=== PATIENT | female | born 1960 | race Caucasian/White ===

== ENCOUNTER 2018-12-11 12:19 | Emergency (ER) | payer BC ==
[2018-12-11 12:45] LABS: #Basophils 0.1 thou/uL (0.0-0.2); #Eosinphils 0.1 thou/uL (0.0-0.7); #Monocytes 0.3 thou/uL (0.11-0.59); #Neutrophils 7.5 thou/uL (1.40-6.50); %Basophils 0.7 % (0.0-1.0); %Eosinophils 0.8 % (0.0-10.0); %Lymphocytes 19.8 % (21.0-51.0); %Monocytes 3.4 % (0.0-10.0); %Neutrophils 75.3 % (42.0-75.0); Hemoglobin 15.9 g/dL (12.0-16.0); Mean Corpuscular HGB CONC 33.3 g/dL (32.0-36.0); Mean Corpuscular Volume 93.3 fL (78.0-98.0); Mean Platelet Volume 8.9 fL (7.4-10.4); Platelet Count 165 thou/uL (130-400); RBC Distribution Width 12.1 % (11.5-14.5); Red Blood Cell (RBC) Count 5.11 mill/uL (4.20-5.40); White Blood Cell (WBC) Count 9.9 thou/uL (4.8-10.8)
[2018-12-11 13:06] LABS: ALT (SGPT) 25 U/L (8-55); AST (SGOT) 21 U/L (5-34); Albumin 4.2 g/dL (3.5-5.0); Alkaline Phosphatase 78 U/L (40-150); Anion Gap 14 mmol/L (10-20); BUN (Urea Nitrogen) 12 mg/dL (9.8-20.1); Bilirubin, Total 0.3 mg/dL (0.2-1.2); Calc. Creatinine Clearance 0 mL/min (70-130); Calcium 9.9 mg/dL (7.8-10.44); Carbon Dioxide 23 mmol/L (22-29); Chloride 105 mmol/L (98-107); Estimated GFR-MDRD 64; Globulin 2.8 g/dL (2.4-3.5); Glucose 85 mg/dL (70-105); Potassium 4.2 mmol/L (3.5-5.1); Sodium 138 mmol/L (136-145)
--- NOTE | 2018-12-11 13:29 | ULT ---
"PRELIMINARY REPORT" Exam: RIGHT BREAST ULTRASOUND: HISTORY: Right breast nipple and areolar feel hard and leathery. Evaluate for infection/abscess. COMPARISON: None. TECHNIQUE: Targeted sonographic imaging in the region of concern was performed. Static images are re viewed. FINDINGS: Static images demonstrate soft tissue echotexture. No evidence of abscess. IMPRESSION: No sonographic evidence of a right breast abscess. Given the patient's history, the poss ibility of inflammatory breast cancer must be considered. Diagnostic mammogram is recommended. Results study discussed with Mili Borrero on 12/11/2018 at 1:29 PM. Code CR
== END 2018-12-11 14:20 | disposition home or self-care (01) ==
LOC: ERS 12:19
DX: N63.10 Unspecified lump in the right breast, unspecified quadrant (principal); F17.200 Nicotine dependence, unspecified, uncomplicated
CPT/HCPCS: 36415; 80053; 83605; 85025; 88305; 88341; 88342

== ENCOUNTER 2018-12-13 13:10 | Outpatient (CLI) | payer BC ==
--- NOTE | 2018-12-13 15:29 | MMO ---
Bilateral MAMMO Bilat Diag [facility]. CLINICAL HISTORY: Patient is 58 years old and is seen for diagnostic exam,skin thickening or retraction on clinical examination in the sub-areolar region of the right breast, lump or thickening in the sub-areolar region of the right breast and nipple abnormality in the right breast. The patient has no family history of breast cancer. The patient has no personal history of cancer. VIEWS: The views performed were: bilateral craniocaudal with tomosynthesis; bilateral mediolateral oblique with tomosynthesis; and bilateral mediolateral with tomosynthesis. FILMS COMPARED: The present examination has been compared to a prior imaging study performed on 12/11/2018. MAMMOGRAM FINDINGS: There are scattered fibroglandular densities. There is an area of architectural distortion seen in the upper-outer region of the right breast. Extensive area of architectural distortion , extends from to upper outer posterior breast. Also enlarged axillary nodes. In the left breast, there are no suspicious masses, calcifications or areas of architectural distortion. IMPRESSION: AREA OF ARCHITECTURAL DISTORTION IN THE RIGHT BREAST IS A KNOWN MALIGNANCY. THE RESULTS OF THIS EXAM WERE SENT TO THE PATIENT. ACR BI-RADS Category 6 - Known Biopsy Proven Malignancy MAMMOGRAPHY NOTE: 1. A negative mammogram report should not delay a biopsy if a dominant of clinically suspicious mass is present. 2. Approximately 10% to 15% of breast cancers are not detected by mammography. 3. Adenosis and dense breasts may obscure an underlying neoplasm. Reported by: BRYCE HA MD Electonically Signed: [id number]
== END 2018-12-13 13:11 | disposition home or self-care (01) ==
LOC: BICMAMMO 13:10
PROVIDERS: ATTEND Specialist
DX: N61.0 Mastitis without abscess (principal); Q83.9 Congenital malformation of breast, unspecified
CPT/HCPCS: 77066; G0279

== ENCOUNTER 2018-12-21 11:54 | Outpatient (CLI) | payer BC ==
[2018-12-21] MEDS ORDERED: Iopamidol 370 76% 100 ML VIAL ONE (13:30)
--- NOTE | 2018-12-21 14:46 | CT ---
CT CHEST WITH CONTRAST CT ABDOMEN WITH CONTRAST CT PELVIS WITH CONTRAST: Date: 12/21/18 HISTORY: Inflammatory breast cancer. Breast pain and swelling. COMPARISON: None. FINDINGS: Lungs are clear. No suspicious pulmonary nodule. No pneumothorax. No effusion. There is a mass in the right upper outer breast with skin thickening and nipple retraction. Abnormal right axillary lymph nodes, likely metastatic in nature. Right mediastinal visceral pleural mass measuring 2.1 x 1.8 x 1.8 cm. No supraclavicular adenopathy. No left axillary adenopathy. No internal mammary adenopathy. There are multiple hepatic sub-6 mm hypodensities, too small to characterize on this examination. In hepatic segment 5 there is also another hypodensity measuring 8 mm, also too small to fully character ize. Gallbladder is unremarkable. Common bile duct measures up to 7 mm, upper limits of normal. Low grade intrahepatic biliary dilatation. Pancreas unremarkable, as well as the spleen. Adrenal glands unremarkable. Kidneys unremarkable. Aortoiliac contour is nonaneurysmal. No dilated loops of large or small bowel. Mild diverticular dise ase sigmoid colon without active current inflammation. There is an area of sclerosis within the L5 vertebra, likely bone island. No definite evidence of oss eous metastatic disease. IMPRESSION: 1. Known right inflammatory breast cancer with marked skin thickening and right upper outer breast m ass, as well as abnormally enlarged right axillary lymph nodes likely metastatic in nature. No eviden ce for supraclavicular or internal mammary adenopathy. 2. Soft tissue mass along the right mediastinal visceral pleura measuring 2.1 x 1.8 x 1.8 cm, may re flect a metastatic implant. 3. Multiple hepatic hypodensities that are all subcentimeter and too small to fully characterize on this exam. 4. No evidence for osseous metastatic disease. 5. PET CT may be beneficial to evaluate the right mediastinal mass. 6. Low grade intrahepatic and extrahepatic biliary dilatation can be seen with sphincter of Oddi dys function. LFT correlation advised. 7. Pedunculated, partially calcified anterior uterine body fibroid. 8. Mild diverticular disease of sigmoid colon without active current inflammation. POS: HOME
== END 2018-12-21 11:55 | disposition home or self-care (01) ==
LOC: CT 11:54
PROVIDERS: ATTEND Internal Medicine Hematology & Oncology
DX: Z51.11 Encounter for antineoplastic chemotherapy (principal); C50.411 Malignant neoplasm of upper-outer quadrant of right female breast; D25.9 Leiomyoma of uterus, unspecified; I08.1 Rheumatic disorders of both mitral and tricuspid valves
CPT/HCPCS: 71260; 74177; 93306

== ENCOUNTER 2018-12-26 10:50 | Outpatient (CLI) | payer BC ==
--- NOTE | 2018-12-26 13:08 | PET ---
EXAM: PET/CT HISTORY: Lung mass TECHNIQUE: PET scanning with CT attenuation correction was performed from the base of the brain to the proximal thighs following the intravenous administration of 11.4 millicuries [id number]. COMPARISON: CT of the chest, abdomen and pelvis dated December 21, 2018 FINDINGS: Biodistribution:The biodistribution for the exam appears acceptable. Head and neck: There is appropriate background activity within the brain. No hypermetabolic lymphaden opathy or masses identified. Thorax: No hypermetabolic pulmonary lesion or pleural effusion is evident. The hyperdense mediastinal mass, adjacent to the ascending aorta demonstrates peak SUV uptake activity of 1.69 and a mean activity 1.42. No hypermetabolic mediastinal or hilar lymphadenopathy is evident. There are hypermeta bolic right axillary lymph nodes. The largest measures 1.2 cm and has a peak SUV activity of 3.32 and a mean activity of 2.41. An additional 1.3 cm right axillary lymph node has a peak activity of 1. 8 and a mean activity of 1.4. There is a 1 cm right axillary lymph node that demonstrates a peak activity 1.9 and a mean activity 1.79. There is prominent hypermetabolic activity seen involving the central aspect of the right breast consistent with patient's known malignancy. The peak activity associated with this region of the breast as a SUV value of 6.89 and a mean activity of 5.88. The act ivity just adjacent to the right nipple complex has a peak activity of 8.90 mean activity of 7 2 Abdomen and pelvis: There is expected background activity within the GI and systems. No hypermetab olic mass, lymphadenopathy or ascites is present. There are tiny hypodensities within the liver that demonstrates no associated hypermetabolic activity ; however, majority subcentimeter in size. The largest within the right hepatic lobe measures 9 mm. Osseous structures and skin: No hypermetabolic skin or osseous lesion is identified. IMPRESSION: Abnormal PET/CT 1. There is hypermetabolic uptake involving the right breast diffusely within the central right breas t extending to the right nipple areolar complex consistent with patient's known history of inflammatory breast cancer of the right breast. There is a hypermetabolic right axillary lymph node t hat is suspicious for malignant lymphadenopathy. There are 2 additional mildly prominent lymph nodes within the right axillary region that demonstrate mild increased uptake but no lokesh hypermetab olic uptake; however, these 2 lymph nodes remain suspicious for metastatic disease. 2. Small hypodensities within the liver demonstrate no associated hypermetabolic activity; however, m ajority of these are subcentimeter in size and below PET resolution threshold. The largest lesion within segment 6 of the right hepatic lobe measures [address] follow-up is recommended. 3. The hypermetabolic mass seen within the right aspect of the mediastinum, adjacent to the ascending aorta demonstrates no hypermetabolic uptake. There is some mild increased uptake associated with this lesion. Differential considerations include a small thymoma, ectopic thyroid tissue, slightly at ypical and hyperdense pericardial cyst. A CT evaluation of the thorax with and without contrast may be helpful for improved characterization.
== END 2018-12-26 10:51 | disposition home or self-care (01) ==
LOC: PET 10:50
PROVIDERS: ATTEND Internal Medicine Hematology & Oncology
DX: C50.919 Malignant neoplasm of unspecified site of unspecified female breast (principal); K76.89 Other specified diseases of liver; J98.59 Other diseases of mediastinum, not elsewhere classified
CPT/HCPCS: 78815; A9552

== ENCOUNTER 2018-12-29 08:44 | Day surgery (SDC) | payer BC ==
[2018-12-28 10:17] VITALS: BMI 30.5
[2018-12-29] MEDS ORDERED: ceFAZolin Sodium (SDC) 2 GM/100 ML BAG ONE (09:39)
[2018-12-29] MEDS ORDERED: Lidocaine 2% PF 5 ML VIAL ONE ×2 (10:24→11:38)
[2018-12-29] MEDS ORDERED: Bupivacaine/Epinephrine 0.25% 30 ML VIAL ONE (10:24)
[2018-12-29] MEDS ORDERED: Fentanyl 100 MCG/2 ML VIAL ONE (11:32)
[2018-12-29] MEDS ORDERED: Bupivacaine HCl 0.5%/Epinephrine 1:200,000/PF 30 ml Vial ONE (11:38)
[2018-12-29] MEDS ORDERED: Midazolam HCl 2 mg/2 ml Vial ONE (11:46)
--- NOTE | 2018-12-29 15:31 | RAD ---
RADIOGRAPH CHEST 1 VIEW: HISTORY: 58-year-old female status post MediPort placement. FINDINGS: There are no air space densities, pulmonary edema, pneumothorax, or cardiomegaly. The lateral costoph renic angles are sharp. There is a left subclavian implantable vascular access port with distal tip o verlying the right atrium. IMPRESSION: 1. No acute cardiopulmonary findings. 2. Left-sided implantable vascular access port placement without pneumothorax. jn [] POS: [facility]
[2018-12-29] MEDS ORDERED: Lidocaine 1% PF 5 ML VIAL ONE (15:44)
[2018-12-29] MEDS ORDERED: PROPOFOL 200 MG/20 ML VIAL ONE (15:44)
[2018-12-29] MEDS ORDERED: Ondansetron PF 4 MG/2 ML Vial ONE (15:44)
--- NOTE | 2018-12-29 19:32 | OP ---
DATE OF PROCEDURE: 12/29/2018 PREOPERATIVE DIAGNOSIS: Right breast cancer inflammatory. POSTOPERATIVE DIAGNOSIS: Right breast cancer inflammatory. PROCEDURE PERFORMED: Left subclavian vein MediPort, low-profile, power injection, fluoroscopy used. ANESTHESIA: Intravenous sedation, local, 0.5% Marcaine with epinephrine 30 mL mixed with 2% Xylocaine 10 mL. DESCRIPTION OF PROCEDURE: The patient was taken to the operating room, where under intravenous sedation, neck and chest were prepared with ChloraPrep and draped in routine fashion. Local anesthetic mixture was infiltrated into the skin and subcutaneous tissue about the operative site. Trocar catheter was cannulated in the subclavian vein in infraclavicular approach. The skin incision was made sharply, carried down the skin and subcutaneous tissue, subcutaneous pocket was fashioned with blunt and sharp dissection, cautery for hemostasis. Dilator and Peel-Away sheath were placed over the J-wire into the superior vena cava. Dilator and J-wire were removed. Catheter was placed with Peel-Away sheath. Peel-Away sheath was removed. Fluoroscopically, the tip of the catheter was placed in optimal position in the superior vena cava, and catheter tailored to length and connected to the MediPort, which was placed in the subcutaneous pocket and secured with 2 interrupted sutures of 3-0 Prolene. Subcutaneous tissue was approximated with 3-0 Monocryl, skin with subdermal 4-0 Monocryl. MediPort was accessed with a Barcenas needle, aspirated blood, flushed with heparinized saline solution. Dermabond was applied. Final fluoroscopic images revealed good catheter placement. Job ID: [id number]
--- NOTE | 2019-01-01 08:58 | EKG ---
Test Reason : PREOP Blood Pressure : / mmHG Vent. Rate : 079 BPM Atrial Rate : 079 BPM P-R Int : 138 ms QRS Dur : 080 ms QT Int : 360 ms P-R-T Axes : 065 009 052 degrees QTc Int : 412 ms Normal sinus rhythm Normal ECG No previous ECGs available Confirmed by DR. Jose KOEHLER ([id number]) on 01/01/2019 8:58:03 AM Referred By: GAL Confirmed By:DR. Jose KOEHLER
== END 2018-12-29 14:30 | disposition home or self-care (01) ==
LOC: SDC 08:44
PROVIDERS: ATTEND Specialist
PROC: 05H633Z Insertion of Infusion Device into Left Subclavian Vein, Percutaneous Approach (ICD-10-PCS; principal; 2018-12-29)
DX: C50.911 Malignant neoplasm of unspecified site of right female breast (principal); F17.200 Nicotine dependence, unspecified, uncomplicated; Z79.899 Other long term (current) drug therapy
CPT/HCPCS: 71045; 93005; 93010; C1788; J0670; J0690; J1642; J2001; J2250; J2405; J2704; J3010

== ENCOUNTER 2019-06-01 09:54 | Outpatient (CLI) | payer BC ==
--- NOTE | 2019-06-01 10:58 | CT ---
EXAM: CT of the chest with contrast CT of the abdomen and pelvis with contrast HISTORY: Breast cancer COMPARISON: 12/21/2018; PET/CT 12/26/2018 TECHNIQUE: 1. Multiple contiguous axial images were obtained in a CT the chest with contrast. Coronal and sagitt al reformats were performed. 2. Multiple contiguous axial images were obtained and a CT of the abdomen and pelvis with contrast. C oronal and sagittal reformats were performed. FINDINGS: CT CHEST: HEART: Normal in size without focal cardiac abnormality MEDIASTINUM: There is a stable oval-shaped mass just anterior to the aorta in the anterior mediastinu m measuring 2.2 cm in greatest dimension. LUNGS: No focal infiltrates, nodules, or masses. PLEURAL SPACE: No pneumothorax or pleural effusion. CHEST WALL SOFT TISSUES: There is stable right breast skin thickening. The mass in the right breast h as decreased in size. It currently measures 1.6 cm in size. The previously seen enlarged right axillary lymph nodes are now normal in size. There is a left-sided Mediport with its tip in the super ior vena cava. CT ABDOMEN/PELVIS: ABDOMEN: LIVER: There are stable subcentimeter hypodensities scattered throughout the liver which are too smal l to definitely characterize. There is stable left lobe mild central intrahepatic biliary dilatation. BILE DUCTS: Normal caliber. GALLBLADDER: No calcified gallstones. Normal caliber wall. PANCREAS: within normal limits. SPLEEN: within normal limits. ADRENALS: within normal limits. KIDNEYS: within normal limits. PELVIS: REPRODUCTIVE ORGANS: No pelvic masses. URETERS: within normal limits. BLADDER: within normal limits. PERITONEUM: No ascites or free air, no fluid collection. BOWEL: Normal caliber. Normal appendix. MESENTERY AND RETROPERITONEUM: No enlarged mesenteric or retroperitoneal lymph nodes. VESSELS: Atherosclerotic calcifications. ABDOMINAL WALL: within normal limits. OSSEOUS STRUCTURES: No acute abnormality. No suspicious osseous lesions identified. IMPRESSION: 1. Decreased size of right breast mass and resolution of right axillary adenopathy 2. Stable nonspecific well-circumscribed mass in the anterior mediastinum. This was not hypermetaboli c on recent PET/CT. 3. Stable hepatic hypodensities
== END 2019-06-01 09:55 | disposition home or self-care (01) ==
LOC: BICCT 09:54
PROVIDERS: ATTEND Internal Medicine Hematology & Oncology
DX: C50.411 Malignant neoplasm of upper-outer quadrant of right female breast (principal); D70.1 Agranulocytosis secondary to cancer chemotherapy; N63.10 Unspecified lump in the right breast, unspecified quadrant; J98.59 Other diseases of mediastinum, not elsewhere classified; R59.0 Localized enlarged lymph nodes; K76.89 Other specified diseases of liver
CPT/HCPCS: 71260; 74177

== ENCOUNTER 2019-06-07 11:14 | Outpatient (CLI) | payer BC ==
[2019-06-07 12:17] LABS: #Eosinphils 0.1 thou/uL (0.0-0.7); #Monocytes 0.5 thou/uL (0.11-0.59); #Neutrophils 7.1 thou/uL (1.40-6.50); %Basophils 0.1 % (0.0-1.0); %Eosinophils 1.2 % (0.0-10.0); %Lymphocytes 10.9 % (21.0-51.0); %Monocytes 5.6 % (0.0-10.0); %Neutrophils 82.2 % (42.0-75.0); Hemoglobin 13.5 g/dL (12.0-16.0); Mean Corpuscular HGB CONC 33.1 g/dL (32.0-36.0); Mean Corpuscular Hemoglobin 32.8 pg (27.0-31.0); Mean Corpuscular Volume 99.2 fL (78.0-98.0); Platelet Count 196 thou/uL (130-400); RBC Distribution Width 13.3 % (11.5-14.5); White Blood Cell (WBC) Count 8.7 thou/uL (4.8-10.8)
[2019-06-07 12:39] LABS: ALT (SGPT) 20 U/L (8-55); AST (SGOT) 21 U/L (5-34); Albumin 4.3 g/dL (3.5-5.0); Alkaline Phosphatase 78 U/L (40-110); Anion Gap 14 mmol/L (10-20); BUN (Urea Nitrogen) 13 mg/dL (9.8-20.1); Bilirubin, Total 0.2 mg/dL (0.2-1.2); Calc. Creatinine Clearance 0 mL/min (70-130); Calcium 9.7 mg/dL (7.8-10.44); Carbon Dioxide 26 mmol/L (22-29); Chloride 104 mmol/L (98-107); Estimated GFR-MDRD 66; Globulin 2.1 g/dL (2.4-3.5); Glucose 104 mg/dL (70-105); Potassium 4.6 mmol/L (3.5-5.1); Protein, Total 6.4 g/dL (6.0-8.3); Sodium 139 mmol/L (136-145)
--- NOTE | 2019-06-08 15:02 | HP ---
PRIMARY CARE PHYSICIAN: Prasanth Cantu DO, MS HISTORY OF PRESENT ILLNESS: Ariana Camilo is a 58-year-old female who has advanced breast cancer, right, undergo estrogen-receptor positive, undergoing neoadjuvant therapy with Dr. Hicks. She has been noted on PET scan to have a hypermetabolic axillary nodes, but clinically, these have resolved. The mediastinal mass was not metabolic on PET and may be benign and has been stable for [address] Choco Wood regarding biopsy would involve mini thoracotomy and thought probably not to be worthwhile. She is BRCA negative. She has tolerated her Taxol and now, I have been asked to see her regarding definitive mastectomy and node sectioning. She has a grade 2 invasive lobular carcinoma, invasion, ER 67%, GA 31%, HER-2 negative, Ki-67 69% inflammatory right breast cancer with skin and nipple areolar changes, but improved with neoadjuvant therapy. Plan is for sentinel lymphoscintigraphy, sentinel node biopsy, right mastectomy, simple versus modified radical pinning, node sampling. She understands risks and benefits and consents. On 12/11/2018, she had a punch biopsy, demonstrated inflammatory breast cancer, invasive lobular, grade 2. On 12/21/2018, she had a CT scan; inflammatory breast cancer, skin thickening, right axillary nodes, likely metastatic, soft tissue mass, right mediastinal, 2.1 x 1.8 x 1.8 cm, unchanged at this point. 12/26/2018, PET scan; 01/04/2019, neoadjuvant DDAC, finished 02/16/2019; 03/02/2019, neoadjuvant Taxol, finished 05/17/2019. PAST SURGICAL HISTORY: and right breast biopsy. PAST MEDICAL HISTORY: Right breast cancer. MEDICATIONS: None currently. SOCIAL HISTORY: Tobacco occasionally. She is and has children. ALLERGIES: NONE. REVIEW OF SYSTEMS: Ten-point, noncontributory. PHYSICAL EXAMINATION: VITAL SIGNS: 163 pounds, 62 inches, 29 BMI, blood pressure 153/84, heart rate 50, and temperature 99.5 degrees. HEAD, EARS, EYES, NOSE, AND THROAT: Unremarkable. LUNGS: Clear to auscultation. CARDIAC: Regular rate and rhythm without murmur or gallop. ABDOMEN: Soft and nontender. EXTREMITIES: Unremarkable. LYMPH: No lymphadenopathy bilaterally. Left breast normal. Right breast reveals thickened skin, thickening nipple areolar area extending out laterally slightly superiorly. LABORATORY DATA: Note; on 05/17/2019, laboratories; white count 5, hemoglobin 12. ASSESSMENT AND PLAN: Inflammatory right breast cancer. We will plan a right simple versus modified radical mastectomy, pending lymphoscintigraphy and sentinel node biopsy. She understands risks and benefits and consents. Job ID: [id number]
== END 2019-06-07 11:15 | disposition home or self-care (01) ==
LOC: LABBT 11:14
PROVIDERS: ATTEND Specialist
DX: Z01.812 Encounter for preprocedural laboratory examination (principal); C50.911 Malignant neoplasm of unspecified site of right female breast
CPT/HCPCS: 80053; 85025

== ENCOUNTER 2019-06-11 07:31 | Day surgery (SDC) | payer BC ==
[2019-06-07 11:41] VITALS: BMI 29.9
[2019-06-11] MEDS ORDERED: Ondansetron PF 4 MG/2 ML Vial ONE (10:40)
[2019-06-11] MEDS ORDERED: Dexamethasone 20 MG/5 ML VIAL ONE (10:40)
[2019-06-11] MEDS ORDERED: ePHEDrine/0.9% NaCl/PF SYRINGE 50 mg/10 ml ONE (10:40)
[2019-06-11] MEDS ORDERED: PHENYLEPHRINE-NS 100 MCG/ML 10 ML SYRINGE ONE (10:40)
--- NOTE | 2019-06-11 12:01 | NM ---
NUCLEAR MEDICINE LYMPHOSCINTIGRAPHY: HISTORY: Right breast inflammatory breast cancer. Evaluate for lymph node metastases. COMPARISON: None. TECHNIQUE: Patient was administered 0.422 mCi of technetium 99m sulfur colloid subcutaneously at the 12:00, 3:00 , 6:00 and 9:00 position. Imaging was obtained immediately, at 1 hour, at 2 hours and 3 hours. FINDINGS: Despite imaging as far out as the hours, there does not appear to be a sentinel lymph node. IMPRESSION: No scintigraphic evidence of a sentinel lymph node. Examination was terminated after 3 hours. Transcribed Date/Time: 06/11/2019 12:13 PM
[2019-06-11] MEDS ORDERED: Midazolam HCl 2 mg/2 ml Vial ONE (12:17)
[2019-06-11] MEDS ORDERED: Fentanyl 100 MCG/2 ML VIAL ONE ×2 (12:17→15:12)
[2019-06-11] MEDS ORDERED: HYDROmorphone 0.5 MG/0.5 ML SYRINGE ONE (12:18)
[2019-06-11] MEDS ORDERED: Ketorolac Tromethamine 30 MG/ML VIAL ONE (12:28)
[2019-06-11] MEDS ORDERED: Acetaminophen 325 MG TAB ONE (12:34)
[2019-06-11] MEDS ORDERED: Acetaminophen 500 MG TAB ONE (12:35)
[2019-06-11] MEDS ORDERED: Enoxaparin Sodium 40 MG/0.4 ML SYRINGE SC SCH (12:45)
[2019-06-11] MEDS ORDERED: Isosulfan Blue 50 MG/5 ML VIAL ONE (13:13)
[2019-06-11] MEDS ORDERED: Promethazine HCl 25 MG/ML VIAL ONE (15:00)
--- NOTE | 2019-06-11 15:08 | OP ---
DATE OF PROCEDURE: 06/11/2019 PREOPERATIVE DIAGNOSIS: Right breast cancer, inflammatory, status post neoadjuvant therapy. PROCEDURE PERFORMED: 1. Lymphoscintigraphy, failed identification of sentinel node. 2. Lymphazurin blue injection, failed identification of sentinel node. 3. Right modified radical mastectomy. ANESTHESIA: General. DRAINS: Two #19 Gold BRET drain. ANESTHESIA: General anesthesia. DESCRIPTION OF PROCEDURE: The patient was taken to the operating room, where under general anesthesia, Lymphazurin blue was injected in the lateral right breast. Right breast was prepared with ChloraPrep and draped in routine fashion. Incision was made for transversely oriented elliptical incision, encompassing en bloc resection of the nipple-areolar complex and the involved skin centrally. Skin conservation maximized while allowing adequate margins. Plasma blade was used through skin and subcutaneous tissue and flap was dissected free, laterally the latissimus, superiorly the clavicle, inferiorly abdominal wall, and medially to the sternum. Once flaps were dissected free, mastectomy specimen dissected free from the pectoralis fascia bilaterally from the latissimus and serratus. Long thoracic and thoracodorsal nerves identified as axillary contents dissected free using clips for hemostasis. There were palpable nodes in the axilla. They were firm. Good hemostasis noted. A tie placed in the axillary tail for pathology identification. Wound was irrigated with water. Two #19 Gold BRET drains placed, secured with 3-0 nylon sutures. Subcutaneous tissue was approximated with 3-0 Monocryl and skin with william. Sterile dressing applied. Job ID: [id number]
[2019-06-11] MEDS ORDERED: HYDROcodone/Acetaminophen 5/325 mg Tablet ONE (17:35)
== END 2019-06-11 17:55 | disposition home or self-care (01) ==
LOC: SDC 07:31
PROVIDERS: ATTEND Specialist
PROC: 0HTT0ZZ Resection of Right Breast, Open Approach (ICD-10-PCS; principal; 2019-06-11)
DX: D05.01 Lobular carcinoma in situ of right breast (principal); F17.200 Nicotine dependence, unspecified, uncomplicated; Z79.899 Other long term (current) drug therapy
CPT/HCPCS: 78195; 88309; A9541; J0690; J1100; J1170; J1642; J1650; J1885; J2250; J2405; J2550; J3010; Q9968

== ENCOUNTER 2019-07-28 12:05 | Observation (INO) | payer BC ==
--- NOTE | 2019-07-28 12:32 | RAD ---
EXAM: Chest one view: HISTORY: TIA, confusion, slurred speech COMPARISON: 12/29/2018 FINDINGS: Left central line and injection port. Heart size: Within normal limits. Lungs: Clear of acute process. No evidence for confluent pneumonia, pleural effusion, acute edema, or pneumothorax, or other signifi cant acute process. IMPRESSION: No significant acute intrathoracic disease. Stable exam.
[2019-07-28 12:42] LABS: #Eosinphils 0.1 thou/uL (0.0-0.7); #Lymphocytes 0.5 thou/uL (1.20-3.40); #Monocytes 0.3 thou/uL (0.11-0.59); #Neutrophils 5.1 thou/uL (1.40-6.50); %Basophils 0.3 % (0.0-1.0); %Eosinophils 2.1 % (0.0-10.0); %Lymphocytes 8.9 % (21.0-51.0); %Monocytes 5.1 % (0.0-10.0); %Neutrophils 83.7 % (42.0-75.0); Hemoglobin 12.5 g/dL (12.0-16.0); Mean Corpuscular HGB CONC 34.1 g/dL (32.0-36.0); Mean Corpuscular Hemoglobin 31.7 pg (27.0-31.0); Mean Corpuscular Volume 92.8 fL (78.0-98.0); Mean Platelet Volume 8.3 fL (7.4-10.4); Platelet Count 139 thou/uL (130-400); RBC Distribution Width 13.1 % (11.5-14.5); Red Blood Cell (RBC) Count 3.94 mill/uL (4.20-5.40); White Blood Cell (WBC) Count 6.1 thou/uL (4.8-10.8)
[2019-07-28 13:04] LABS: ALT (SGPT) 15 U/L (8-55); AST (SGOT) 17 U/L (5-34); Alkaline Phosphatase 78 U/L (40-110); Anion Gap 8 mmol/L (10-20); BUN (Urea Nitrogen) 18 mg/dL (9.8-20.1); Bilirubin, Total 0.3 mg/dL (0.2-1.2); Calc. Creatinine Clearance 0 mL/min (70-130); Calcium 9.8 mg/dL (7.8-10.44); Carbon Dioxide 29 mmol/L (22-29); Chloride 101 mmol/L (98-107); Estimated GFR-MDRD 51; Globulin 2.5 g/dL (2.4-3.5); Glucose 95 mg/dL (70-105); Magnesium 1.5 mg/dL (1.6-2.6); Potassium 4.4 mmol/L (3.5-5.1); Protein, Total 6.5 g/dL (6.0-8.3); Sodium 134 mmol/L (136-145)
--- NOTE | 2019-07-28 13:21 | CT ---
EXAM: Brain CTWithout contrast: HISTORY: Altered mental status inflammatory breast cancer COMPARISON: None FINDINGS: Several centimeter diameter focal area of encephalomalacia in the left frontal lobe with some adjacen t brain volume loss probably related to old infarct or old insult. No focal mass or midline shift. No intra or extra-axial hemorrhage. Sinuses and mastoids are clear of acute process. IMPRESSION: No mass or bleed or other significant acute intracranial process. Focal area of encephalomalacia in the left frontal lobe with some adjacent brain volume loss probably related to old infarct or other old insult.
[2019-07-28 14:51] LABS: Bacteria/HPF None Seen HPF (None Seen); Bilirubin Negative (Negative); Blood, Urine Trace (Negative); Clarity Clear (Clear); Glucose, Urine (Dipstick) Normal (Negative); Leukocyte Negative Leu/uL (Negative); Nitrite Negative (Negative); Protein, Urine (Dipstick) Negative (Neg-Trace); RBC/HPF 0-3 HPF (0-3); Squamous Epithelial 0-3 HPF (0-3); Urobilinogen Normal mg/dL (Less than 2); WBC/HPF 0-3 HPF (0-3)
[2019-07-28] MEDS ORDERED: Aspirin 325 MG TAB PO SCH (16:30)
[2019-07-28] MEDS: Heparin 5,000 UNITS/ML VIAL SC SCH (20:13)
[2019-07-28] MEDS: Atorvastatin Calcium 40 MG TAB PO SCH (20:14)
--- NOTE | 2019-07-29 00:59 | HP ---
CHIEF COMPLAINT: Acute confusion. HISTORY OF PRESENT ILLNESS: The patient is a 59-year-old female with inflammatory breast cancer. She had finished chemotherapy, status post mastectomy of the right breast and also is now starting on radiation, who presented to the hospital with change in mental status. The patient's who is at the bedside stated that the patient woke up this morning. She was feeling well; however, all of a sudden, the patient did not know the patient's words and speech did not make sense. At this time, the called EMS and brought her into the hospital. The patient's stated that this lasted about an hour and a half or hour and 20 minutes. When she came into the ER, her symptoms resolved. She denies any recent illnesses. She is not on any new medications. Her gave her 2 baby aspirin. PAST MEDICAL HISTORY: She has a history of, as I mentioned, inflammatory breast cancer. She has also had what seems like either an aneurysm, which had happened after she had her done. SURGICAL HISTORY: She has had a and a right mastectomy and also right port placement. FAMILY HISTORY: Mother had ovarian cancer. REVIEW OF SYSTEMS: All negative except for the ones mentioned above in the HPI. SOCIAL HISTORY: She was a smoker, 2 to 3 packs every 2 to 3 days. However, she has not smoked for the past 3 months. No alcohol use. No drug use. She is a full code. Lives with her . PHYSICAL EXAMINATION: VITAL SIGNS: 97.9, 87, 18, 96% on room air, 119/60. GENERAL: She is awake, alert, and oriented x3. Does not appear in any distress. HEENT: Normocephalic, atraumatic. No lymphadenopathy noted. Pupils are equal and reactive to light. CV: S1 and S2 present. No murmurs, rubs, or gallops. LUNGS: Clear to auscultation. No rhonchi or wheezes noted. ABDOMEN: Soft, nontender. Bowel sounds are present x2. BREASTS: She does have a scar in her right breast area. The incision looks healed. She does have some mild erythema, however, nothing concerning. NEUROVASCULAR: No focal deficits noted. Her pupils are equal and reactive to light. She is oriented x3, is able to conversate. Cranial nerves 3 through 11 are intact. She does have some loss of sensation to her finger tips and toes, but she attributes that to her chemotherapy. SKIN: She does have a port on her left chest. No cuts, lesions, or bruises noted. LABORATORY RESULTS: WBCs of 6.1, hemoglobin of 12.5, hematocrit of 36.6, platelets of 139. Chemistry; sodium of 134, potassium of 4.4, BUN of 18, creatinine of 1.10. Her CT head that she had in the ER indicated no mass or bleeds or any other significant intracranial processes. She does have a focal area of encephalomalacia to the left frontal lobe, which is where her aneurysm was. Her EKG was normal sinus rhythm. ASSESSMENT AND PLAN: The patient is a very pleasant 59-year-old female, who presents to the hospital with acute confusion. 1. Possible transient ischemic attack. We will get an MRI brain in the morning. I will get it with contrast just to rule out any other, given her history of cancer. We will get Neurology to see her. We will put her on aspirin. We will also check lipid panel. She has already quit smoking. We will get carotid Dopplers and echocardiogram. 2. Inflammatory breast cancer. Again, she is on radiation. She is 2 weeks out 6 weeks of radiation. 3. Deep venous thrombosis prophylaxis. We will put the patient on SCDs. Job ID: [id number]
[2019-07-29 05:37] LABS: Cardiac Risk 4.7 (Less than 4.5)
--- NOTE | 2019-07-29 09:17 | CON ---
DATE OF CONSULTATION: 07/29/2019 CONSULTING PHYSICIAN: Hospitalist Service. IMPRESSION: Probable nonconvulsive seizure with transient amnesia and garbled speech secondary to her underlying cortical injury. PLAN: 1. MRI of the brain to rule out metastatic disease. 2. Monitor for further events before committing to anticonvulsant therapy. HISTORY OF PRESENT ILLNESS: Ms. Camilo is a 59-year-old woman with a past history of cerebral aneurysm that ruptured in 1997 and breast cancer that is undergoing treatment. She was at home, walking down the hallway when she apparently lost awareness of her surroundings. Her reports she continued to move about the house, messing with the dishes and other activities. He tried to talk to her, but she was talking incoherently. She refused to take any medicine and follow any commands as he directed her. EMS was called and she regained awareness upon their arrival. She then got dressed and came into the hospital. She has not had any further symptoms since then. She had a CT of the brain done, which showed evidence of some prior cortical injury on the left. Her lab work was all unremarkable including cholesterol ratio of 4.7. Her vital signs have been stable with low blood pressures and no temperature since admission. PAST MEDICAL HISTORY: As listed above. ALLERGIES: NONE. SOCIAL HISTORY: No tobacco or alcohol. FAMILY HISTORY: Noncontributory. REVIEW OF SYSTEMS: Ten-system review of systems is otherwise negative. PHYSICAL EXAMINATION: VITAL SIGNS: Blood pressure 88/58, pulse 83, respirations 18, and temperature 97.8. HEENT: Pupils are equal and reactive. Conjunctivae are clear. Oropharynx clear. NECK: Supple. EXTREMITIES: No cyanosis, clubbing, or edema. NEUROLOGIC: She is alert and appropriate. Her speech is fluent and clear. Cranial nerve exam is unremarkable. She has equal strength. No abnormal movements are seen. Sensation is intact to touch. IMAGING: EKG shows sinus rhythm. SUMMARY: This is a middle-aged woman with transient amnesia and some garbled speech for some 15 or 20 minutes. It seems unlikely that this was an ischemic event based on the available history, she has an MRI pending. Given the lack of prior events, I would not start anticonvulsant therapy. Job ID: [id number]
[2019-07-29] MEDS: Heparin 5,000 UNITS/ML VIAL SC SCH ×2 (09:27→20:02)
[2019-07-29] MEDS: Aspirin 325 mg Enteric Coated Tablet PO SCH (09:28)
[2019-07-29] MEDS ORDERED: Magnevist 469MG/ML 20 ML VIAL ONE (11:37)
--- NOTE | 2019-07-29 12:54 | MRI ---
EXAM: MRI Brain W WO Con PROVIDED CLINICAL HISTORY: Altered mental status. Patient has history of inflammatory breast cancer. COMPARISON: CT head on 07/28/2019 FINDINGS: Innumerable scattered enhancing lesions are seen throughout the cerebral and cerebellar hemispheres b ilaterally as well as in the keshawn. Some of these lesions demonstrate ring enhancement. Largest lesion in the left cerebellar hemisphere is seen in the lateral left parietal lobe which measures anna roximately 8 mm. Remainder of the lesions within the bilateral cerebral hemispheres measure less than 1 cm. There is a larger enhancing lesion in the left cerebellar hemisphere which measures 16 mm. There is an enhancing lesion measuring approximately 9 mm located just medial to the left temporal lobe in the adjacent cistern. This is not thought to be related to a intraparenchymal metastatic lesi on appears to be in the region of the subarachnoid space and the adjacent cistern. There is question of mild leptomeningeal enhancement seen in the superior aspect of the right temporal lobe. T here is a linear area of enhancement seen involving the lateral left temporal lobe which may actually represent prominent vessel in this region although minimal leptomeningeal enhancement in thi s region is also a possibility. There is an area of encephalomalacia and gliosis seen in the left anterior frontal lobe. There is hemosiderin deposition along the margin of the area of encephalomalac ia suggesting hemosiderin staining related to prior hemorrhage. Mild edema is seen surrounding the metastatic lesion in the left cerebellar hemisphere which demonstrates an area of enhancement with ce ntral cystic area. There is no evidence of an acute infarction. No midline shift or significant mass effect is appreciat ed. Minimal mastoid effusions are seen bilaterally. Appropriate flow voids are demonstrated in the large intracranial vessels at the base the brain. The orbits have a normal appearance. Minimal mucosal thickening scattered in the paranasal sinuses. IMPRESSION: 1. Evidence of metastatic disease with innumerable subcentimeter metastatic lesions seen throughout t he cerebral hemispheres bilaterally as well as involving the bilateral cerebellar hemispheres. Largest lesion is seen in the left cerebellar hemisphere which does demonstrate mild adjacent edema. An enhancing lesion is seen just medial to the left temporal lobe which is centered in the region of the adjacent cistern. In addition, there is questionable leptomeningeal enhancement within each te mporal lobe.
--- NOTE | 2019-07-29 16:02 | PDOC.EVN ---
Event Note - Event Note Event Note: MRI suggests probable metastatic disease. will start antiepileptic po. Dx brain mets, seizure
--- NOTE | 2019-07-29 17:30 | ULT ---
Carotid duplex sonogram HISTORY: TIA. Vascular disease. FINDINGS: Right: Color and spectral Doppler evaluation, peak systolic velocity of 94 cm/s, and IC to CC ratio o f 1.2 suggest no hemodynamically significant stenosis within the extracranial right ICA. Minimal plaque. Antegrade flow within the vertebral artery. Left: Minimal plaque. Color and spectral Doppler evaluation, peak systolic velocity of 43 cm/s, and I C to CC ratio 0.4 suggest no hemodynamically significant stenosis within the extra cranial left ICA. Antegrade flow within the vertebral artery. IMPRESSION: Mild atherosclerosis. No sonographic evidence of significant extracranial ICA stenosis.
[2019-07-29] MEDS ORDERED: ALPRAZolam 0.25 MG TAB PO PRN (17:51)
[2019-07-29] MEDS: levETIRAcetam 500 MG TAB PO SCH (20:03)
[2019-07-29] MEDS: Atorvastatin Calcium 40 MG TAB PO SCH (20:03)
[2019-07-30] MEDS: levETIRAcetam 500 MG TAB PO SCH ×2 (08:36→18:14)
[2019-07-30] MEDS: Aspirin 325 mg Enteric Coated Tablet PO SCH (08:36)
[2019-07-30] MEDS: Heparin 5,000 UNITS/ML VIAL SC SCH (08:38)
--- NOTE | 2019-07-30 09:13 | PDOC.HOSPP ---
- Subjective Encounter Date: 07/30/19 Encounter Time: 09:03 Subjective: no seizure activity - Objective Vital Signs & Weight: Vital Signs (12 hours) Temp Pulse Resp BP Pulse Ox 07/30/19 07:43 98.2 F 94 16 78/59 L 98 07/30/19 04:00 98.2 F 89 18 102/55 L 97 07/29/19 23:18 98.1 F 90 16 90/58 L 98 Weight Weight 164 lb 3.2 oz I&O: 07/29/19 07/30/19 07/31/19 06:59 06:59 06:59 Intake Total 750 610 Balance 750 610 Result Diagrams: 07/28/19 12:34 07/28/19 12:34 Hospitalist ROS - Medication Medications: Active Medications Generic Name Dose Route Start Last Admin Trade Name Freq PRN Reason Stop Dose Admin Alprazolam 0.25 mg 07/29/19 17:51 07/29/19 20:02 Xanax PO 0.25 mg Q6H PRN Administration Anxiety Aspirin 325 mg 07/29/19 09:00 07/30/19 08:36 Ecotrin PO 325 mg DAILY KATIE Administration Atorvastatin Calcium 40 mg 07/28/19 21:00 07/29/19 20:03 Lipitor PO 40 mg HS KATIE Administration Heparin Sodium (Porcine) 5,000 units 07/28/19 21:00 07/30/19 08:38 Heparin SC Not Given Q12HR KATIE Levetiracetam 500 mg 07/29/19 21:00 07/30/19 08:36 Keppra PO 500 mg BID KATIE Administration - Exam General Appearance: awake alert Neck: no JVD Heart: RRR Respiratory: CTAB Gastrointestinal: soft, normal bowel sounds Extremities: no edema Hosp A/P (1) Brain metastases Code(s): C79.31 - SECONDARY MALIGNANT NEOPLASM OF BRAIN Status: Acute (2) Breast cancer Status: Chronic Qualifiers: Patient sex: female Laterality: right (3) Seizure Code(s): R56.9 - UNSPECIFIED CONVULSIONS Status: Acute - Plan cont Beena spoke with Dr Hicks, her oncologist
[2019-07-30 15:10] VITALS: BP 104/49; TEMP 98.5
--- NOTE | 2019-07-30 17:17 | CON ---
DATE OF CONSULTATION: REASON FOR CONSULTATION: Inflammatory breast cancer. HISTORY OF PRESENT ILLNESS: Ms. 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 She is ER/OK positive. She underwent dose-dense chemotherapy consisting of Adriamycin, Cytoxan, and Taxol. She had some breast thickening and likely progression at the end of Taxol. She was re-staged in May. The CT showed a decrease in the size of the breast mass and resolution of her right axillary lymph node. She then underwent a mastectomy with Dr. Ambrocio in June. Final path showed a grade 3 extensive invasive lobular carcinoma with dermal and epidermal involvement. She had inflammatory carcinoma with 4 out of 5 lymph nodes positive. She was started on postmastectomy radiation therapy for her extensive high-grade disease, has approximately 3 weeks left. She presented to the emergency room this weekend with complaints of altered mental status. She underwent a CT scan of her brain, which showed no mass or bleed or any other significant intracranial process. She then had an MRI of the brain. Unfortunately, this did show evidence of metastatic disease. There was innumerable subcentimeter lesions seen throughout the cerebral hemispheres bilaterally. We were asked to see her regarding this new diagnosis. PAST MEDICAL HISTORY: 1. Stage IIIB inflammatory breast cancer of her right breast status post chemo and mastectomy. 2. 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 PAST SURGICAL HISTORY: 1. Right mastectomy with sentinel lymph node excision. 2. . ALLERGIES: NO KNOWN DRUG ALLERGIES. HOME MEDICATIONS: 1. Tramadol. 2. Zofran. FAMILY HISTORY: Mother had ovarian cancer. SOCIAL HISTORY: , has one child. Lives with her spouse, 40 pack-year history of smoking. No alcohol or illicit drug use. REVIEW OF SYSTEMS: A 10-point review of systems is negative. PHYSICAL EXAMINATION: VITAL SIGNS: Temperature is 98.5, pulse is 95, respiratory rate 18, BP is 104/49, and she is 98% on room air. GENERAL: This is a well-developed, well-nourished female, in no acute distress. HEENT: Normocephalic and atraumatic. CV: Regular rate and rhythm. LUNGS: Clear. ABDOMEN: Soft and nontender. CHEST: She has postsurgical mastectomy scars. EXTREMITIES: No clubbing or cyanosis. NEUROLOGIC: Nonfocal. PERTINENT LABORATORY DATA AND X-RAYS: Current WBCs are 6.1, hemoglobin 12.5, hematocrit 36.6, and platelet count is 139,000. She got 84% neutrophils and 9% lymphocytes. Sodium is 134, potassium 4.4, chloride 101, CO2 is 29, BUN is 18, creatinine 1.1, and calcium 9.8. Magnesium 1.5. Bilirubin 0.3, AST is 17, ALT is 15, and alkaline phosphatase is 78. Serum total protein 6.5, albumin 4.0, and globulin 2.5. Radiology per HPI. ASSESSMENT: Metastatic brain lesions in a patient with inflammatory breast cancer. DISCUSSION: The patient has been placed on steroids for edema. She has also been placed on antiseizure medication. Dr. Powers has been consulted for his opinion regarding whole-brain radiation. I discussed with the patient that this does put her a stage IV disease, but certainly treatable. The case has been discussed with Dr. Hicks who will see the patient in the morning. She can be discharged once she has seen Dr. Powers and will follow up in the outpatient setting if needed. Thank you for the consult. Job ID: [id number]
[2019-07-30] MEDS ORDERED: Dexamethasone 4 MG TAB PO SCH (21:00)
--- NOTE | 2019-07-30 22:48 | CON ---
DATE OF CONSULTATION: REASON FOR CONSULTATION: Ms. Camilo is a 59-year-old female, well known to me for her diagnosis of a pathological stage IIIB, [id number] grade 3 invasive lobular carcinoma of the right breast (inflammatory carcinoma) that was estrogen receptor positive and HER-2 receptor negative. She has now been diagnosed with brain metastasis. HISTORY OF PRESENT ILLNESS: Ms. Camilo recently completed chemotherapy and then right modified radical mastectomy for her inflammatory breast carcinoma. She has been on chest wall and regional lymph node radiation therapy for about 2-1/2 weeks. This weekend, she had an episode of having a blank stare and not responding to her . He was concerned that she had a stroke. She was subsequently brought to the emergency room and was admitted to the hospital. She did undergo an MRI of the brain, which showed numerous lesions in the brain consistent with brain metastasis. There was some concern that she might have leptomeningeal carcinomatosis. I have now been asked to see her for consideration of radiation therapy. She has been started on Keppra and has had no further episodes. She has no headaches, nausea, vomiting or focal weakness. She denies any back pain or other areas of pain. She voices no other complaints. PAST MEDICAL HISTORY: 1. Breast cancer as mentioned above. 2. History of CVA in 1997 with minimal residual deficit. 3. Status post . 4. She denies other medical surgical problems. MEDICATIONS: 1. Keppra. 2. Dexamethasone. 3. Lipitor. 4. Aspirin. 5. Xanax. ALLERGIES: NO KNOWN MEDICAL ALLERGIES. SOCIAL HISTORY: She previously smoked up to 1 pack per day for 40 years. She has no tobacco use at the present. She has no alcohol use. 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 FAMILY HISTORY: Her mother from ovarian cancer at age 62. Her father's family history is unknown. There is no other family history of breast or ovarian cancer. REVIEW OF SYSTEMS: Twelve system review of systems is otherwise negative. PHYSICAL EXAMINATION: VITAL SIGNS: 5 feet 2 inches, weight 164 pounds, blood pressure is 104/49, pulse is 95, respirations are 18, temperature 98.5, O2 saturation is 98%. CONSTITUTIONAL: She is alert and oriented and in no apparent distress. She is well developed and well nourished. Karnofsky performance status is 90%. EYES: Pupils equal, round, and reactive to light. Extraocular movements are intact. ENT: Oral cavity and oropharynx normal without lesion or erythema. Palate elevates symmetrically. Gingiva is intact. NECK: Supple without cervical or supraclavicular adenopathy. No thyromegaly. Larynx midline. LUNGS: Breathing nonlabored. Clear to auscultation and percussion. CARDIOVASCULAR: Heart, regular rate and rhythm without murmur. No lower extremity edema. BACK: No tenderness on fist percussion of her spine. LYMPHATIC: No axillary or inguinal adenopathy. ABDOMEN: Soft, nontender, nondistended without mass or hepatosplenomegaly. Liver percusses to normal size. NEUROLOGIC: Cranial nerves 2 through 12 are grossly intact. Motor strength 5/5 in both upper and lower extremities in all muscle groups tested. Reflexes are normal and symmetrical. Gait was not tested. LABORATORY DATA: CBC revealed a white blood cell count of 6100 with a hemoglobin of 12.5, hematocrit of 36.6, and platelet count of 139,000. Chemistry group showed fairly normal electrolytes. RADIOLOGIC DATA: MRI of the brain was personally reviewed. This showed numerous lesions in the brain consistent with brain metastasis. There was also question of some leptomeningeal enhancement. ASSESSMENT: Ms. Camilo is a 59-year-old female who was being treated for inflammatory breast cancer who has now been diagnosed with numerous brain metastasis from her inflammatory breast cancer. PLAN: I have discussed the case with Dr. Hicks and Dr. Hood, her hospitalists. I have discussed the case with the patient and her . Her best treatment at this time is whole-brain radiation therapy. The logistics of whole-brain radiation as well as the benefits and risk of treatment were discussed. The simulation and daily treatment procedure were discussed. Side effects would include, but not be limited to skin reaction, fatigue, lower blood counts, headache, nausea, vomiting, hair loss, which may be permanent, fluid behind the eardrums, and risk of cognitive effects from the radiation therapy. We did have a lengthy discussion regarding the possible cognitive effects from radiation. I did recommend that we place her on Namenda, which has been shown in a randomized trial to reduce the cognitive effects from whole-brain radiation therapy. She is agreeable to that. Time was taken to answer all of her questions regarding radiation therapy. She is agreeable to proceed with radiation as recommended to her. Arrangements will be made for her to undergo simulation tomorrow. We will continue with her chest wall radiation therapy also. I would recommend that she be placed on dexamethasone and Pepcid during this time also. We will taper dexamethasone as an outpatient when clinically allowed. She should continue on her Keppra also. Thank you for this interesting consultation. Job ID: [id number]
--- NOTE | 2019-07-31 07:45 | DIS ---
DATE OF ADMISSION: 07/28/2019 DATE OF DISCHARGE: 07/30/2019 DISPOSITION: Discharged home. PCP: None. FINAL DIAGNOSES: Inflammatory carcinoma of the breast, seizure disorder, metastasis to the brain. DISCHARGE MEDICATIONS: 1. Keppra 500 mg p.o. b.i.d. 2. Dexamethasone 4 mg p.o. b.i.d. 3. Pepcid 20 mg p.o. b.i.d. ALLERGIES: NO KNOWN DRUG ALLERGIES. PENDING AT THE TIME OF DISCHARGE: Nothing. CODE STATUS: Full. DIET: As tolerated. HOSPITAL COURSE: The patient was admitted to the Hospitalist Service through the emergency room with altered mental status. She was felt to have TIA, seizure, etc. She was seen in consultation by Dr. Eloy Yepez. Carotid Doppler, no stenosis. Echocardiogram, EF 55% to 60%. MRI of the brain revealed innumerable small metastatic lesions. CBC was basically unremarkable. Comprehensive metabolic profile had a sodium of 134, otherwise unremarkable. The finding was discussed with the patient. She was seen in consultation by Em Lee for Dr. Hicks, Oncology. She was seen in consultation by Dr. Cullen Powers, Oncology/Radiotherapy. She is being discharged to follow up with Dr. Powers tomorrow morning. Job ID: [id number]
== END 2019-07-30 18:30 | disposition home or self-care (01) ==
LOC: ERS 12:05 → 2SE 16:09
PROVIDERS: ADMIT Internal Medicine; ATTEND Internal Medicine
DX: C50.911 Malignant neoplasm of unspecified site of right female breast (principal); C79.31 Secondary malignant neoplasm of brain; G40.909 Epilepsy, unspecified, not intractable, without status epilepticus; Z86.73 Personal history of transient ischemic attack (TIA), and cerebral infarction without residual deficits; Z87.891 Personal history of nicotine dependence; Z17.1 Estrogen receptor negative status [ER-]; Z79.82 Long term (current) use of aspirin; Z79.899 Other long term (current) drug therapy
CPT/HCPCS: 36415; 70450; 70553; 71045; 80053; 80061; 81003; 81015; 83735; 84484; 85025; 93005; 93306; 93880; 96372; A9579; G0378; J1644; J8540

== ENCOUNTER 2019-09-11 09:48 | Outpatient (CLI) | payer BC ==
[2019-09-11] MEDS ORDERED: Magnevist 469MG/ML 20 ML VIAL ONE ×2 (10:51)
--- NOTE | 2019-09-11 12:15 | MRI ---
Exam: MRI THORACIC SPINE WITH AND WITHOUT CONTRAST: HISTORY: Inflammatory breast cancer. New onset leg weakness and back pain. Evaluate for metastases. COMPARISON: None. FINDINGS: There is T1 marrow signal hypointensity with associated STIR hyperintensity and enhancement involving the T1 vertebral body, T2 vertebral body, and the L1 vertebral body. Vertebral body height is maintained. There is no evidence of a pathologic fracture. No significant loss of disc space height. Neural foramina are patent throughout the thoracic spine. Visualized mediastinum, lung parenchyma and kidneys have appropriate signal intensity. No retroperito angelika or paraspinal mass, lymphadenopathy, or hematoma. Multiple T2 hyperintensities, with associated enhancement involving the liver, compatible with metastatic lesions until proven otherwise . Throughout the central spinal canal there is no significant stenosis. Mild narrowing of the central s deniz canal at T8-T9. The thoracic cord has a normal size and signal intensity. No cord expansion or cord malacia, with respect to the visualized spinal cord. The entire spinal cord is not included o n this examination but is included in the lumbar spine MRI. Based on the sagittal images, there does appear to be a possible intramedullary lesion at the mid T12 level. Refer to separate thoracic s pine MRI report. There is diffuse enhancement along the surface of the thoracic cord. Additionally, there are scattered enhancement along multiple thoracic nerve roots suggesting nerve root involvement . IMPRESSION: 1. Multifocal osseous metastases without pathologic fracture. 2. Intramedullary lesion is suspected in the thoracic cord at the T12 level, incompletely evaluated o n the current exam. Refer to separate lumbar spine MRI report for further detail. 3. Diffuse enhancement along the surface of the cord suggesting pial enhancement. Multiple hepatic me tastases are suspected. Transcribed Date/Time: 09/11/2019 12:30 PM
--- NOTE | 2019-09-11 12:29 | MRI ---
Exam: LUMBAR SPINE MRI WITH AND WITHOUT CONTRAST: HISTORY: Inflammatory breast cancer. Leg weakness. Evaluate for drop metastases. COMPARISON: None. FINDINGS: Appropriate signal intensity of visualized paraspinal muscles. Conus medullaris terminates at the inferior aspect of L1. There is T1 marrow signal hypointensity wit h associated T2 and STIR hyperintensity involving the L1, L3, L4, and L5 vertebral bodies. There is associated enhancement. There is similar signal intensity of the S3 vertebral body level. Incidental osseous hemangioma at L1. Throughout the lumbar spine, there is no significant central canal stenosis or significant neural for aminal narrowing. Postcontrast images demonstrate an enhancing intramedullary focus at the T12 level, measuring 0.3 cm in the craniocaudal dimension. There is diffuse enhancement of the visualized spinal cord suggesting leptomeningeal/pial enhancement. Abnormal enhancement involves bilateral nerve roots throu ghout the lumbar and visualized upper sacral plexuses. IMPRESSION: 1. Multifocal osseous metastases without evidence of pathologic fracture. 2. Intramedullary lesion in the distal thoracic cord at the T12 level. 3. Diffuse enhancement of the surface of the cord compatible with pial enhancement. Results conveyed to Dr. He via [employer] 09/11/2019 12:36 PM. Code CR Transcribed Date/Time: 09/11/2019 12:35 PM
== END 2019-09-11 09:49 | disposition home or self-care (01) ==
LOC: MRI 09:48
PROVIDERS: ATTEND Radiology Radiation Oncology
DX: C50.811 Malignant neoplasm of overlapping sites of right female breast (principal); C79.31 Secondary malignant neoplasm of brain; C79.49 Secondary malignant neoplasm of other parts of nervous system; M54.9 Dorsalgia, unspecified; R29.898 Other symptoms and signs involving the musculoskeletal system
CPT/HCPCS: 72157; 72158; A9579

== ENCOUNTER 2019-09-18 08:41 | Outpatient (CLI) | payer BC ==
--- NOTE | 2019-09-18 11:57 | PET ---
Exam: PET SCAN WITH CT ATTENUATION CORRECTION: HISTORY: Malignant neoplasm of the upper outer quadrant of right breast. Brain and liver metastases. COMPARISON: 12/26/2018. TECHNIQUE: PET scan with CT attenuation correction was performed from the base of the brain to the pr oximal thighs following the intravenous administration of 12.3 mCi of [id number]. FINDINGS: Head and neck: No abnormal FDG localization. Chest: Postsurgical changes compatible with right mastectomy. No evidence of right axillary hypermeta bolic lymphadenopathy. Interval development of skin thickening with mild hypermetabolic activity involving the left breast. Maximum SUV is 2.6. Hypermetabolic left axillary lymph nodes. Representati ve left axillary lymph node has maximum SUV of 5.9. Mildly hypermetabolic subcarinal lymph node with a maximum SUV of 5.0. CT used for attenuation correc tion demonstrates linear densities in the left lung likely representing scar and/or atelectasis. Abdomen and pelvis: Multifocal hypermetabolic foci scattered throughout the left and right hepatic lo be. Hypermetabolic focus in the caudate lobe has maximum SUV of 9.8. Caudate lobe lesion appears to be the most hypermetabolic. No abnormal FDG localization in the pelvis. Osseous structures: There is evidence of multifocal osseous metastases. Hypermetabolic lesion at T1 h as a maximum SUV of 4.4. Hypermetabolic lesion at L3 has a maximum SUV of 5.6, at L4 has a maximum SUV of 5.5, at L5 has a maximum SUV of 5.2. Additional hypermetabolic foci are noted in the iliac win gs, left femoral head and right subtrochanteric region. IMPRESSION: 1. Increased FDG avidity involving the left axilla and left breast. Findings favor development of a n ew primary malignancy in the left breast. 2. Osseous and hepatic metastases. Hepatic metastases has progressed since the previous PET scan. Oss eous metastases has developed since the previous PET scan. 3. Interval development of a hypermetabolic subcarinal lymph node. Results of study conveyed to Dr. Hicks via [employer] on 09/18/2019 11:56 AM. CODE CR.
== END 2019-09-18 08:42 | disposition home or self-care (01) ==
LOC: PET 08:41
PROVIDERS: ATTEND Internal Medicine Hematology & Oncology
DX: C79.51 Secondary malignant neoplasm of bone (principal); C79.31 Secondary malignant neoplasm of brain; C78.7 Secondary malignant neoplasm of liver and intrahepatic bile duct; C50.411 Malignant neoplasm of upper-outer quadrant of right female breast
CPT/HCPCS: 78815; A9552

== ENCOUNTER 2019-10-04 15:14 | Inpatient (IN) | payer BC ==
[~2019-10-04 15:14] MED LIST: Iopamidol-370 76% 500 ML 1 ML ONE
[2019-10-04] MEDS ORDERED: Dexamethasone 10 MG/ML VIAL ONE (15:41)
[2019-10-04] MEDS ORDERED: Vancomycin 1 GM/200 ML BAG ONE (15:41)
[2019-10-04] MEDS ORDERED: Cefepime 2 GM VIAL ONE (15:41)
[2019-10-04 16:00] LABS: Mean Corpuscular HGB CONC 31.6 g/dL (32.0-36.0); Mean Corpuscular Hemoglobin 28.2 pg (27.0-31.0); Mean Corpuscular Volume 89.2 fL (78.0-98.0); Mean Platelet Volume 13.8 fL (7.4-10.4); Platelet Count 14 thou/uL (130-400); RBC Distribution Width 14.7 % (11.5-14.5); Red Blood Cell (RBC) Count 4.61 mill/uL (4.20-5.40); White Blood Cell (WBC) Count 0.3 thou/uL (4.8-10.8)
--- NOTE | 2019-10-04 16:03 | RAD ---
PORTABLE CHEST: 10/04/19 HISTORY: Syncope. COMPARISON: 07/28/19 study. Heart size is within normal limits. Left sided Mediport catheter is again noted. Some subsegmental at electatic change in the left base. IMPRESSION: Subsegmental atelectasis left lung base. POS: [facility]
[2019-10-04 16:20] LABS: ALT (SGPT) 37 U/L (8-55); AST (SGOT) 14 U/L (5-34); Albumin 2.9 g/dL (3.5-5.0); Alkaline Phosphatase 82 U/L (40-110); Anion Gap 14 mmol/L (10-20); BUN (Urea Nitrogen) 14 mg/dL (9.8-20.1); Bilirubin, Total 1.7 mg/dL (0.2-1.2); CK (CPK) 80 U/L (29-168); Calc. Creatinine Clearance 0 mL/min (70-130); Calcium 8.1 mg/dL (7.8-10.44); Carbon Dioxide 20 mmol/L (22-29); Chloride 98 mmol/L (98-107); Estimated GFR-MDRD 81; Globulin 2.5 g/dL (2.4-3.5); Glucose 132 mg/dL (70-105); Lipase Less than 4 U/L (8-78); Potassium 4.1 mmol/L (3.5-5.1); Protein, Total 5.4 g/dL (6.0-8.3); Sodium 128 mmol/L (136-145)
--- NOTE | 2019-10-04 16:21 | CT ---
CT HEAD WITHOUT IV CONTRAST COMPARISON: 07/28/2019 HISTORY: Altered mental status. Hypotension. Loss of muscle tone in neck. TECHNIQUE: Axial CT imaging at 5 mm intervals from vertex through skull base without contrast FINDINGS: Stable area of encephalomalacia in left anterior frontal lobe is seen. Multiple small enhancing metas tatic lesions were seen throughout each cerebral hemisphere as well as each cerebellar hemisphere on prior MRI on 07/29/2019. There are scattered punctate areas of increased density seen throughout ea ch cerebral hemisphere as well as in the left cerebellar hemisphere which were not appreciated on the prior CT examination. Findings are felt to be secondary to treated metastatic disease with multip le treated punctate metastatic lesions visualized. No vasogenic edema is seen. There is no evidence of an acute infarction, hemorrhage, mass effect, or midline shift. There is sli ght interval development of mild ventriculomegaly with slightly greater degree of dilatation of the temporal horns of each lateral ventricle and body of each lateral ventricle compared to prior exam. T he fourth ventricle is not significantly changed in size or appearance compared to prior exam. Opacification of right mastoid air cells is present on today's exam. The limited visualized pneumatiz ed left mastoid air cells are similar to prior study without mastoid effusion appreciated. Visualized paranasal sinuses are clear. Osseous structures appear intact.No lytic or sclerotic osseous lesion is appreciated a subcentimeter lucency is seen within the lateral right parietal bone (image 23, series 3). This is stable when compared to prior CT exam. No additional lytic or sclerotic osseous lesions are seen within the dia rium. IMPRESSION: 1. Multiple scattered punctate foci of increased density seen within each cerebral hemisphere and lef t cerebellar hemisphere which could be related to punctate hemorrhagic metastatic lesions, but findings are favored to likely represent treated metastatic lesions. 2. Interval development of mild ventriculomegaly compared to prior study. 3. No vasogenic edema is seen. There is no mass effect or midline shift. 4. Stable encephalomalacia left anterior frontal lobe. 5. Stable tiny subcentimeter lucency right parietal bone. This is overall nonspecific. While a puncta te metastatic lesion cannot be excluded, this could represent a tiny hemangioma. 6. Opacification of right mastoid air cells.
[2019-10-04 16:24] LABS: Fibrinogen 847 mg/dL (253-463); INR-International Normal Ratio 1.4; PTT 29.8 SEC (22.9-36.1); Prothrombin Time 17.3 SEC (12.0-14.7)
[2019-10-04 16:34] LABS: FSP-Qualitative Normal (Normal)
[2019-10-04 16:37] LABS: Actual Bicarbonate (HCO3a) 20.3 mEq/L (22-28); Analyzer IN Cardio ER; Base Excess (BEa) -3.6 mEq/L (-2.0 to +3.0); CO2 Tension 32.8 mmHg (35.0-45.0); Calcium, Ionized 1.06 mmol/L (1.12-1.30); Carboxyhemoglobin (COHb) 0.3 gm% (0.0-3.0); Hemoglobin (Hb) 10.8 g/dL (12.0-16.0); O2 Tension (PaO2) 78.9 mmHg (> 80.0); Potassium - ABG Lab 3.99 mmol/L (3.70-5.30); pH, Arterial 7.41 (7.35-7.45)
[2019-10-04 16:38] LABS: Puncture Site LRA
[2019-10-04 17:24] LABS: Bacteria/HPF None Seen HPF (None Seen); Bilirubin Negative (Negative); Blood, Urine 1+ (Negative); Clarity Clear (Clear); Glucose, Urine (Dipstick) Normal (Negative); Leukocyte Negative Leu/uL (Negative); Mucous/LPF Rare LPF (<2+); Nitrite Negative (Negative); Protein, Urine (Dipstick) 20 mg/dL (Neg-Trace); RBC/HPF 0-3 HPF (0-3); Renal Epithelial 0-3 HPF (None Seen); Squamous Epithelial 0-3 HPF (0-3); Urobilinogen 3 mg/dL (Less than 2); WBC/HPF 0-3 HPF (0-3)
--- NOTE | 2019-10-04 18:23 | CT ---
CT PULMONARY ANGIOGRAM WITH IV CONTRAST AND 3D POSTPROCESSIN10/04/19 HISTORY: Elevated D-dimer. Malignant neoplasm of upper outer quadrant of right female breast. Brain and liver metastasis. FINDINGS: There is good contrast opacification of the pulmonary arterial vasculature without filling defects to suggest pulmonary embolism. There are vascular calcifications without evidence of aneurysmal dilatat ion of the thoracic aorta. No pleural or pericardial effusions are seen. No intimal flap is seen in t he opacified lumen of the aorta to suggest dissection. A right sided anterior mediastinal lymph node is stable since the PET scan of 09/18/2019 and was also seen on the CT scan of 06/01/1019. There are dependent changes in the lung bases and subsequent atelectatic change of the left lung base . A small area of focal consolidation is seen in the posteromedial aspect of the right lower lobe. No pneumothoraces or lung masses are identified. Low density lesions in the liver and heterogeneity in the T1 vertebral body are likely due to metastatic disease. The patient is post right mastectomy. IMPRESSION: No CT evidence of pulmonary embolism. POS: SIN
[2019-10-04] MEDS ORDERED: Ondansetron PF 4 MG/2 ML Vial IVP PRN (18:44)
[2019-10-04] MEDS ORDERED: Acetaminophen 500 MG TAB PO PRN (18:44)
[2019-10-04] MEDS ORDERED: Ondansetron ODT 4 MG TAB PO PRN (18:44)
--- NOTE | 2019-10-04 19:45 | HP ---
PRIMARY CARE PROVIDER: Shauna Rodriguez. PRIMARY ONCOLOGIST: Dr. John Hicks. CHIEF COMPLAINT: Confusion and dehydration. HISTORY OF PRESENT ILLNESS: This is a 59-year-old female with significant history of metastatic inflammatory breast carcinoma, currently receiving Ibrance chemotherapy with the Cancer Clinic, who is presenting to [facility] Emergency Department with question of altered mentation and low blood pressure with dehydration. The patient denies any specific confusion, but states her noted her with some confusion. The patient apparently was noted oriented to person and place at the Cancer Clinic; however, due to hypotension was referred to the emergency room for further evaluation. The patient does admit that she does not drink much water at home and is constantly encouraged by family members or friends to drink more water. The patient denied any nausea, vomiting, diarrhea, or blood in the stool. The patient states she has been compliant with her chronic medication regimen including morphine sulfate, which has been prescribed by her oncologist. In the emergency room, the patient underwent general evaluation with systolic blood pressure noted in the 80s. The patient received 2 L of normal saline with overall improvement in systolic blood pressure. Screening metabolic panel showed neutropenia with thrombocytopenia. The patient was placed on neutropenic precautions and treated for potential sepsis picture. The patient received IV cefepime, vancomycin, and dexamethasone in addition to fluid resuscitation. The patient stabilized in the emergency room with systolic blood pressures in the mid 110s currently. PAST MEDICAL HISTORY: 1. 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 2. Seizure disorder secondary to #1. 3. Former tobacco use. 4. 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 PAST SURGICAL HISTORY: 1. Status post section. 2. Status post right mastectomy. 3. Status post left chest MediPort placement. CURRENT MEDICATIONS: List may be incomplete, previously; 1. Dexamethasone 4 mg p.o. b.i.d. 2. Keppra 500 mg p.o. b.i.d. ALLERGIES: NO KNOWN DRUG ALLERGIES. FAMILY HISTORY: Mother with ovarian cancer. SOCIAL HISTORY: and resides in [place], [place]. No current alcohol, tobacco, or illicit drug use. Former tobacco user. Functional of all activities of daily living. REVIEW OF SYSTEMS: CONSTITUTIONAL: Negative for weight loss or gain, ability to conduct usual activities. SKIN: Negative for rash, itching. EYES: Negative for double vision, pain. ENT/MOUTH: Negative for nose bleeding, neck stiffness, pain, tenderness. CARDIOVASCULAR: Negative for palpitations, dyspnea on exertion, orthopnea. RESPIRATORY: Negative for shortness of breath, wheezing, cough, hemoptysis, fever or night sweats. GASTROINTESTINAL: Negative for poor appetite, abdominal pain, heartburn, nausea, vomiting, constipation, or diarrhea. GENITOURINARY: Negative for urgency, frequency, dysuria, nocturia. MUSCULOSKELETAL: Negative for pain, swelling. NEUROLOGIC/PSYCHIATRIC: Negative for anxiety, depression. ALLERGY/IMMUNOLOGIC: Negative for skin rash, bleeding tendency. Otherwise negative except as stated per HPI. PHYSICAL EXAMINATION: VITAL SIGNS: On admission, blood pressure 93/69, pulse 153, respiratory rate 20, temperature 97.8 degrees Fahrenheit, O2 saturation 97% on room air. GENERAL APPEARANCE: This is a 59-year-old female, alert and oriented x3, pleasant, talkative, in no acute distress. HEENT: Pupils are equal, round, reactive to light and accommodation. Extraocular muscles are intact. No scleral icterus. No conjunctival injection. Nares patent. OP clear. Oral mucosa dry. NECK: Supple. No cervical adenopathy. No thyromegaly. No carotid bruits. No JVD appreciated. Cervical spine with full active and passive range of motion. No meningeal signs noted. CHEST: Lungs are clear to auscultation bilaterally. CARDIOVASCULAR EXAM: S1, S2 with tachycardia. No murmur, rub, or gallop appreciated. Postsurgical changes including post mastectomy scar noted in the right chest. Left upper chest wall with MediPort in place. ABDOMEN: Rounded, soft, nontender, and nondistended. Bowel sounds are positive in all 4 quadrants. There is no hepatosplenomegaly. No abdominal bruits. No rebound or guarding appreciated. EXTREMITIES: Warm and dry with fair turgor. No clubbing, cyanosis, or asymmetric edema appreciated. Pulses palpable distally at the dorsalis pedis, posterior tibial, and popliteal arteries bilaterally. Capillary refill less than 2 seconds. NEUROLOGIC: Cranial nerves 2 through 12 are grossly intact. Alert and oriented x3. Not observed ambulatory during this exam. PERTINENT LABORATORY AND X-RAY FINDINGS: Sodium 128, potassium 4.1, chloride 98, CO2 of 20, BUN 14, creatinine 0.73, estimated GFR of 81, glucose 132, lactic acid level 2.5, calcium 8.1, total bilirubin 1.7, AST 14, ALT of 37, alkaline phosphatase 82. BNP 38. Albumin 2.9. CBC showed a white blood cell count of 0.3, hemoglobin 13, hematocrit 41, platelet count 14 with no differential reported. PT 17.3, INR 1.4, and PTT 29.8, fibrinogen 847. D-dimer 2.80. Arterial blood gas dated 10/04/2019, showed a pH of 7.41, pCO2 of 33, PO2 of 79, bicarb 20, O2 saturation 95% on 21% FiO2. Urinalysis positive for hyaline casts. Portable chest x-ray dated 10/04/2019, showed left basilar atelectasis. CT of the brain without contrast dated 10/04/2019, showed multiple punctate foci in bilateral cerebral hemisphere consistent with metastatic process. Mild ventriculomegaly. No vasogenic edema noted. No midline shift. Stable encephalomalacia of left anterior frontal lobe. CT angiogram of the chest dated 10/04/2019, showed no evidence for pulmonary embolus. EKG dated 10/04/2019, by my interpretation shows sinus tachycardia with heart rates in the 140s. Normal R-wave progression noted in the precordial leads. Normal axis. No acute ST-T wave changes appreciated. ASSESSMENT AND PLAN: 1. Neutropenic sepsis. The patient will be admitted to the Medical Oncology Service. We will continue intravenous normal saline 125 mL/h. Continue cefepime 2 g IV q.12 hours with additional vancomycin 1 g IV q.12 hours. Blood and urine cultures pending. Repeat lactic acid per protocol. Continue neutropenic precautions. 2. Acute metabolic encephalopathy. Improving with IV fluid replacement. Continue supportive management as outlined in #1. 3. Inflammatory breast carcinoma with brain metastasis. Continue dexamethasone 4 mg IV q.6 hours. See #1 above. 4. Hyponatremia. Continue intravenous normal saline as outlined previously. Serial sodium monitoring. 5. Neutropenia/thrombocytopenia. Secondarily to antineoplastic therapy. Consult Medical Oncology Service in the a.m. Transfuse 1 unit of platelets. Repeat CBC in the a.m. 6. Prophylaxis. SCDs while in bed. Pepcid 20 mg p.o. b.i.d. Neutropenic precautions. CODE STATUS: Full. Surrogate medical decision maker is the patient's spouse. Job ID: [id number]
[2019-10-04 19:53] LABS: Lactic Acid 2.2 mmol/L (0.5-2.2)
[2019-10-04] MEDS: Sodium Chloride 0.9% 1,000 ML IV SCH (20:25)
[2019-10-04] MEDS: Famotidine 20 MG TAB PO SCH (20:25)
[2019-10-04] MEDS: levETIRAcetam 500 MG TAB PO SCH (20:25)
[2019-10-04 21:43] VITALS: BMI 30.4
[2019-10-05] MEDS: Dexamethasone 4 mg/ml Vial SLOW IVP SCH ×4 (00:17→17:44)
[2019-10-05] MEDS: Sodium Chloride 0.9% 1,000 ML IV SCH ×3 (04:17→20:13)
[2019-10-05] MEDS: Cefepime 2 GM in Sodium Chloride 0.9% 100 ML IVPB SCH ×2 (04:21→16:45)
[2019-10-05] MEDS: Vancomycin 1 GM in Premix Bag 1 BAG IVPB SCH ×2 (05:02→17:44)
[2019-10-05 07:14] LABS: ALT (SGPT) 33 U/L (8-55); AST (SGOT) 16 U/L (5-34); Albumin 2.6 g/dL (3.5-5.0); Alkaline Phosphatase 66 U/L (40-110); Anion Gap 10 mmol/L (10-20); BUN (Urea Nitrogen) 11 mg/dL (9.8-20.1); Bilirubin, Total 1.6 mg/dL (0.2-1.2); Calc. Creatinine Clearance 135 mL/min (70-130); Calcium 7.7 mg/dL (7.8-10.44); Carbon Dioxide 20 mmol/L (22-29); Chloride 106 mmol/L (98-107); Estimated GFR-MDRD Greater than 90; Globulin 2.4 g/dL (2.4-3.5); Glucose 150 mg/dL (70-105); Potassium 3.8 mmol/L (3.5-5.1); Sodium 132 mmol/L (136-145)
[2019-10-05 08:06] LABS: Hemoglobin 10.9 g/dL (12.0-16.0); Mean Corpuscular HGB CONC 34.6 g/dL (32.0-36.0); Mean Corpuscular Hemoglobin 30.6 pg (27.0-31.0); Mean Corpuscular Volume 88.6 fL (78.0-98.0); Mean Platelet Volume 8.6 fL (7.4-10.4); Platelet Count 50 thou/uL (130-400); RBC Distribution Width 14.9 % (11.5-14.5); Red Blood Cell (RBC) Count 3.59 mill/uL (4.20-5.40); White Blood Cell (WBC) Count 0.4 thou/uL (4.8-10.8)
[2019-10-05 08:35] LABS: MDiff Complete? YES; Platelet Morphology Comment Appears Decreased; Polychromasia SLIGHT = 2-3 cells (100X) (0-2/hpf)
[2019-10-05] MEDS: Famotidine 20 MG TAB PO SCH ×2 (08:40→20:15)
[2019-10-05] MEDS: levETIRAcetam 500 MG TAB PO SCH ×2 (08:41→20:15)
[2019-10-05] MEDS: Morphine ER 30 MG TAB PO SCH ×2 (09:01→20:15)
--- NOTE | 2019-10-05 12:48 | PDOC.HOSPP ---
- Subjective Encounter Date: 10/05/19 Encounter Time: 12:45 Subjective: f/u for neutropenic sepsis on current Cefepime/Vancomycin with negative blood cx currently. Overall feeling better today. Appetite slowly improving. - Objective Vital Signs & Weight: Vital Signs (12 hours) Temp Pulse Resp BP Pulse Ox 10/05/19 08:00 97.8 F 114 H 18 115/69 96 10/05/19 04:00 97.6 F 109 H 16 105/59 L 96 Weight Weight 166 lb 11.68 oz I&O: 10/04/19 10/05/19 10/06/19 06:59 06:59 06:59 Intake Total 250 Balance 250 Result Diagrams: 10/05/19 07:59 10/05/19 06:42 Additional Labs: Microbiology 10/04/19 15:56 Venous blood - Left Hand Blood Culture - Preliminary Specimen has been received and culture in progress. No Growth to date. 10/04/19 15:38 Venous blood - Left Arm Blood Culture - Preliminary Specimen has been received and culture in progress. No Growth to date. Laboratory Tests 10/04/19 10/04/19 10/04/19 15:38 15:38 19:27 WBC 0.3 L* Plt Count 14 L* Lactic Acid 2.5 H 2.2 Cortisol 10/05/19 06:42 WBC Plt Count Lactic Acid Cortisol 13.80 Hospitalist ROS - Medication Medications: Active Medications Generic Name Dose Route Start Last Admin Trade Name Freq PRN Reason Stop Dose Admin Dexamethasone 4 mg 10/04/19 23:59 10/05/19 05:02 Decadron SLOW IVP 4 mg Q6HR KATIE Administration Famotidine 20 mg 10/04/19 21:00 10/05/19 08:40 Pepcid PO 20 mg BID KATIE Administration Cefepime HCl 2 gm/ Sodium 100 mls @ 200 mls/hr 10/05/19 04:00 10/05/19 04:21 Chloride IVPB 100 mls 0400,1600 KATIE Administration Sodium Chloride 1,000 mls @ 125 mls/hr 10/04/19 18:44 10/05/19 04:17 Normal Saline 0.9% IV 1,000 mls .Q8H KATIE Administration Vancomycin HCl 1 gm/ Device 200 mls @ 200 mls/hr 10/05/19 05:00 10/05/19 05: 02 IVPB 200 mls 0500,1700 KATIE Administration Levetiracetam 500 mg 10/04/19 21:00 10/05/19 08:41 Keppra PO 500 mg BID KATIE Administration Morphine Sulfate 30 mg 10/05/19 09:00 10/05/19 09:01 Ms Contin PO 30 mg Q12HR KATIE Administration - Exam General Appearance: NAD, awake alert Eye: PERRL, anicteric sclera ENT: normocephalic atraumatic, no oropharyngeal lesions Neck: supple, symmetric, no JVD, no thyromegaly, no carotid bruit Heart: RRR, no murmur, no gallops, no rubs, normal peripheral pulses Heart - other findings: S1, S2 Respiratory: CTAB, no wheezes, no rales, no ronchi, normal chest expansion Gastrointestinal: soft, non-tender, non-distended, normal bowel sounds, no palpable masses Extremities: no cyanosis, no clubbing, no edema Skin: normal turgor Neurological: cranial nerve grossly intact, no new deficit Musculoskeletal: normal tone, normal strength Psychiatric: normal affect, A&O x 3 Hosp A/P (1) Neutropenic sepsis Code(s): A41.9 - SEPSIS, UNSPECIFIED ORGANISM; D70.9 - NEUTROPENIA, UNSPECIFIED Status: Acute Plan: Continue supportive mgmt, continue Cefepime/Vancomycin another 24h then d/c, initial blood cx negative (2) Acute metabolic encephalopathy Code(s): G93.41 - METABOLIC ENCEPHALOPATHY Status: Acute Plan: Likely multifactorial including #1 and dehydration, improved and resolving (3) Hyponatremia Code(s): E87.1 - HYPO-OSMOLALITY AND HYPONATREMIA Status: Acute Plan: continue IVF NS, serial Na+ (4) Inflammatory breast carcinoma Code(s): C50.919 - MALIGNANT NEOPLASM OF UNSP SITE OF UNSPECIFIED FEMALE BREAST Status: Acute Qualifiers: Laterality: right Qualified Code(s): C50.911 - Malignant neoplasm of unspecified site of right female breast Plan: Will resume outpt chemotherapy upon d/c (5) Brain metastases Code(s): C79.31 - SECONDARY MALIGNANT NEOPLASM OF BRAIN Status: Acute Plan: Metastatic inflammatory breast carcinoma - Plan continue antibiotics, PT/OT, social media marketer, out of bed/ambulate, DVT proph w/ SCDs Stable currently Continue Cefepime/Vancomycin Continue IVF's Encourage increased free-H2O intake OOB with PT AM lab: BMP, CBC Likely home in 24h
--- NOTE | 2019-10-05 14:33 | EKG ---
Test Reason : Blood Pressure : / mmHG Vent. Rate : 143 BPM Atrial Rate : 143 BPM P-R Int : 122 ms QRS Dur : 066 ms QT Int : 264 ms P-R-T Axes : 057 006 008 degrees QTc Int : 407 ms Sinus tachycardia Otherwise normal ECG Confirmed by JOHN MAGALLANES, UDAY ([id number]), brands editor TITI LAI ([id number]) on 10/05/2019 2:33:10 PM Referred By: Confirmed By:UDAY LOPEZ MD
[2019-10-05] MEDS ORDERED: Calcium Carbonate 500 MG ChewTAB PO PRN (16:22)
--- NOTE | 2019-10-05 19:26 | CON ---
DATE OF CONSULTATION: REASON FOR CONSULT: Breast cancer and pancytopenia. HISTORY OF PRESENT ILLNESS: Ms. Camilo is a 59-year-old female, who has stage IV right breast cancer. She is currently on Ibrance, Femara, and Zometa. Her Ibrance was started in early September for recent progression of disease. She has been weak and tired, eating poorly. She presented to the office yesterday with poor appetite, dehydration, and inability to hold up her neck. She has had no falls, but had gotten significantly weaker over the past few days. Her heart rate was 120. She was hypotensive. She was started on IV hydration in our clinic and given dexamethasone. Her white count was 0.6 and platelets were 10. She had no improvement after IV fluids, so was sent to the emergency room for further treatment. She had a CT angio of the chest, which showed no pulmonary emboli. Her brain CT was consistent with her known metastatic disease. Her white blood cell count was 0.3 and platelets were 14,000. She was transfused platelets overnight. She is resting comfortably at bedside. She denies any chest pain or shortness of breath. She complains of weakness, fatigue, and poor appetite. PAST MEDICAL HISTORY: 1. Stage IV breast cancer with brain mets, spinal drop mets, bone and liver mets. 2. Stroke in 1997. PAST SURGICAL HISTORY: 1. . 2. Mastectomy. 3. MediPort placement. ALLERGIES: NO KNOWN DRUG ALLERGIES. HOME MEDICATIONS: 1. Femara 2.5 mg tablet daily. 2. Ibrance 125 mg. 3. MS Contin 30 mg b.i.d. 4. Tramadol p.r.n. FAMILY HISTORY: Mother had ovarian cancer. SOCIAL HISTORY: , has one child, 40 pack-year history of smoking. No alcohol or illicit drug use. REVIEW OF SYSTEMS: A 10-point review of systems is negative except for noted in HPI. PHYSICAL EXAMINATION: VITAL SIGNS: Temperature is 98.2, pulse is 118, respiratory rate 18, BP is 117/68. She is 96% on room air. GENERAL: This is a chronically ill-appearing female, in no acute distress. HEENT: Normocephalic, atraumatic. Pupils are equal and reactive to light. NECK: Supple. CARDIOVASCULAR: Regular rate and rhythm. LUNGS: Clear. ABDOMEN: Soft and nontender. Bowel sounds are positive. EXTREMITIES: No clubbing or cyanosis. SKIN: No rash. NEUROLOGICAL: Nonfocal. BREASTS: She has bilateral mastectomy scars. PERTINENT LABS AND X-RAYS: Current WBCs are 0.4, hemoglobin 10.9, hematocrit 31.8, platelet count 50,000. PT 17.3, INR is 1.4, and PTT is 29.8. Fibrinogen is 847. Sodium 132, potassium 3.8, chloride 108, CO2 is 20, BUN is 0.53. Lactic acid is 2.2. Calcium 7.7. Bilirubin 1.6, AST is 16, ALT is 33, alkaline phosphatase is 66, serum total protein is 5, albumin 2.6, globulin 2.5. Cortisol is 13.8. Urine is negative. RADIOLOGY: Per HPI. ASSESSMENT: 1. Metastatic breast cancer. 2. Neutropenia secondary to chemo. 3. Dehydration. DISCUSSION: The patient has improved overnight. She no longer has issues with holding her head up. She has voided multiple times during the day. However, she has not had a bowel movement in the last several days. We will resume MiraLAX and stool softener. She is on daily narcotics. Continue IV hydration and monitoring of her CBC. Physical Therapy has been consulted for her weakness. Hopefully, she will turn the corner in the next 24 hours and be able to go home, and she will follow up in the clinic next week. Thank you for the consult. Job ID: [id number]
[2019-10-05] MEDS: Letrozole 2.5 MG TAB PO SCH (20:15)
[2019-10-05] MEDS: Docusate 100 MG CAP PO SCH (20:15)
[2019-10-06] MEDS: Dexamethasone 4 mg/ml Vial SLOW IVP SCH ×5 (00:41→23:13)
[2019-10-06] MEDS: Sodium Chloride 0.9% 1,000 ML IV SCH ×3 (02:14→23:13)
[2019-10-06] MEDS: Cefepime 2 GM in Sodium Chloride 0.9% 100 ML IVPB SCH ×2 (03:58→16:04)
[2019-10-06 04:22] LABS: Hemoglobin 8.6 g/dL (12.0-16.0); Mean Corpuscular Hemoglobin 30.1 pg (27.0-31.0); Mean Corpuscular Volume 88.6 fL (78.0-98.0); Mean Platelet Volume 9.2 fL (7.4-10.4); Platelet Count 30 thou/uL (130-400); RBC Distribution Width 14.8 % (11.5-14.5); Red Blood Cell (RBC) Count 2.85 mill/uL (4.20-5.40); White Blood Cell (WBC) Count 0.2 thou/uL (4.8-10.8)
[2019-10-06 04:30] LABS: Hypochromia SLIGHT = 6-15 cells (100X) (0-5/hpf); MDiff Complete? YES; Platelet Morphology Comment Appears Decreased
[2019-10-06 04:36] LABS: Anion Gap 11 mmol/L (10-20); BUN (Urea Nitrogen) 10 mg/dL (9.8-20.1); Calc. Creatinine Clearance 152 mL/min (70-130); Calcium 7.7 mg/dL (7.8-10.44); Carbon Dioxide 21 mmol/L (22-29); Chloride 108 mmol/L (98-107); Estimated GFR-MDRD Greater than 90; Glucose 104 mg/dL (70-105); Potassium 3.6 mmol/L (3.5-5.1); Sodium 136 mmol/L (136-145); Vancomycin, Trough 11.1 ug/mL
[2019-10-06] MEDS: Vancomycin HCl 1.25 GM in Sodium Chloride 0.9% 250 ML 250 ML IVPB SCH ×2 (05:23→17:45)
[2019-10-06] MEDS: Morphine ER 30 MG TAB PO SCH ×2 (09:05→20:18)
[2019-10-06] MEDS: Polyethylene Glycol 3350 17 GM Packet PO SCH (09:06)
[2019-10-06] MEDS: Famotidine 20 MG TAB PO SCH ×2 (09:06→20:18)
[2019-10-06] MEDS: levETIRAcetam 500 MG TAB PO SCH ×2 (09:06→20:18)
[2019-10-06] MEDS: Docusate 100 MG CAP PO SCH ×2 (09:06→20:18)
--- NOTE | 2019-10-06 12:01 | PDOC.HOSPP ---
- Subjective Encounter Date: 10/06/19 Encounter Time: 09:30 Subjective: doing well, constipation, still, last BM last tuesday. on stool softeners, if not working, then will do suppository. continuous conversation:-). wbcs only 200, plts 30K. - Objective Vital Signs & Weight: Vital Signs (12 hours) Temp Pulse Resp BP BP Pulse Ox 10/06/19 09:06 96 10/06/19 08:00 97.8 F 100 16 103/58 L 96 10/06/19 04:00 97.6 F 102 H 16 111/58 L 97 Weight Weight 166 lb 11.68 oz I&O: 10/05/19 10/06/19 10/07/19 06:59 06:59 06:59 Intake Total 250 2675 360 Output Total 1295 Balance 250 1380 360 Result Diagrams: 10/06/19 04:05 10/06/19 04:05 Hospitalist ROS - Medication Medications: Active Medications Generic Name Dose Route Start Last Admin Trade Name Freq PRN Reason Stop Dose Admin Calcium Carbonate 1,000 mg 10/05/19 16:22 10/05/19 16:44 Tums PO 1,000 mg Q4H PRN Administration INDIGESTION Dexamethasone 4 mg 10/04/19 23:59 10/06/19 05:23 Decadron SLOW IVP 4 mg Q6HR KATIE Administration Docusate Sodium 100 mg 10/05/19 21:00 10/06/19 09:06 Colace PO 100 mg BID KATIE Administration Famotidine 20 mg 10/04/19 21:00 10/06/19 09:06 Pepcid PO 20 mg BID KATIE Administration Cefepime HCl 2 gm/ Sodium 100 mls @ 200 mls/hr 10/05/19 04:00 10/06/19 03:58 Chloride IVPB 100 mls 0400,1600 KATIE Administration Sodium Chloride 1,000 mls @ 125 mls/hr 10/04/19 18:44 10/06/19 02:14 Normal Saline 0.9% IV 1,000 mls .Q8H KATIE Administration Vancomycin HCl 1.25 gm/ Sodium 250 mls @ 166.667 mls/hr 10/06/19 05:00 05:23 Chloride IVPB 250 mls 0500,1700 KATIE Administration Letrozole 2.5 mg 10/05/19 21:00 10/05/19 20:15 Femara PO Not Given QPM KATIE Levetiracetam 500 mg 10/04/19 21:00 10/06/19 09:06 Keppra PO 500 mg BID KATIE Administration Memantine 10 mg 10/05/19 21:00 10/06/19 09:06 Namenda PO 10 mg BID KATIE Administration Morphine Sulfate 30 mg 10/05/19 09:00 10/06/19 09:05 Ms Contin PO 30 mg Q12HR KATIE Administration Polyethylene Glycol 17 gm 10/06/19 09:00 10/06/19 09:06 Miralax PO 17 gm DAILY KATIE Administration - Exam General Appearance: NAD, awake alert Eye: PERRL ENT: normocephalic atraumatic Neck: supple Heart: RRR Respiratory: CTAB, no wheezes Gastrointestinal: soft, normal bowel sounds Hosp A/P - Plan sepsis Code(s): A41.9 - SEPSIS, UNSPECIFIED ORGANISM; D70.9 - NEUTROPENIA, UNSPECIFIED Status: Acute Plan: Continue supportive mgmt, continue Cefepime/Vancomycin another 24h then d/c, initial blood cx negative Continue Cefepime/Vancomycin Severe leukopenia -close monitor - no diff.. done - will check on that -onc s/off w.. fw in the clinic. - will check w.. them, if any jeni. - thrombocytopenia plts around 30K, no bleed sn.. (2) Acute metabolic encephalopathy Code(s): G93.41 - METABOLIC ENCEPHALOPATHY Status: Acute Plan: Likely multifactorial including #1 and dehydration, resolved (3) Hyponatremia Code(s): E87.1 - HYPO-OSMOLALITY AND HYPONATREMIA Status: Acute Plan: continue IVF NS, serial Na+ -improved (4) Inflammatory breast carcinoma Code(s): C50.919 - MALIGNANT NEOPLASM OF UNSP SITE OF UNSPECIFIED FEMALE BREAST Status: Acute Qualifiers: Laterality: right Qualified Code(s): C50.911 - Malignant neoplasm of unspecified site of right female breast Plan: Will resume outpt chemotherapy upon d/c (5) Brain metastases Code(s): C79.31 - SECONDARY MALIGNANT NEOPLASM OF BRAIN Status: Acute Plan: Metastatic inflammatory breast carcinoma - Plan continue antibiotics, PT/OT, psychotherapist social worker, out of bed/ambulate, DVT proph w/ SCDs Stable currently fw on the wbc count bl oscar neg x 4 days will wait another day, before dc them - does not appear need any home abx regimen as oscar neg and clinically stable except very low wbcs of 200 only. -fw on the differential.
[2019-10-06] MEDS: Letrozole 2.5 MG TAB PO SCH (20:19)
[2019-10-07] MEDS: Cefepime 2 GM in Sodium Chloride 0.9% 100 ML IVPB SCH ×2 (04:15→16:21)
[2019-10-07] MEDS: Vancomycin HCl 1.25 GM in Sodium Chloride 0.9% 250 ML 250 ML IVPB SCH ×2 (05:29→17:12)
[2019-10-07] MEDS: Dexamethasone 4 mg/ml Vial SLOW IVP SCH ×4 (05:29→23:43)
[2019-10-07 05:47] LABS: Hemoglobin 8.9 g/dL (12.0-16.0); Mean Corpuscular Hemoglobin 29.3 pg (27.0-31.0); Mean Corpuscular Volume 88.6 fL (78.0-98.0); Mean Platelet Volume 9.1 fL (7.4-10.4); Platelet Count 26 thou/uL (130-400); RBC Distribution Width 15.3 % (11.5-14.5); Red Blood Cell (RBC) Count 3.05 mill/uL (4.20-5.40); White Blood Cell (WBC) Count 0.4 thou/uL (4.8-10.8)
[2019-10-07 05:58] LABS: Platelet Morphology Comment Appears Decreased; RBC Morphology Normal
[2019-10-07] MEDS: Morphine ER 30 MG TAB PO SCH ×2 (08:23→20:05)
[2019-10-07] MEDS: Famotidine 20 MG TAB PO SCH ×2 (08:23→20:05)
[2019-10-07] MEDS: levETIRAcetam 500 MG TAB PO SCH ×2 (08:23→20:05)
[2019-10-07] MEDS: Docusate 100 MG CAP PO SCH ×2 (08:23→20:05)
[2019-10-07] MEDS: Polyethylene Glycol 3350 17 GM Packet PO SCH (08:26)
[2019-10-07] MEDS: Sodium Chloride 0.9% 1,000 ML IV SCH ×3 (08:33→20:06)
[2019-10-07] MEDS ORDERED: Bisacodyl 10 MG SUPP PR PRN (10:21)
--- NOTE | 2019-10-07 12:21 | PDOC.HOSPP ---
- Subjective Encounter Date: 10/07/19 Encounter Time: 09:30 Subjective: sleeping, on awake, states some chest discomfort comes and goes. No BM yet, despite on stool softeners. d/w RN. will try suppositories. - Objective Vital Signs & Weight: Vital Signs (12 hours) Temp Pulse Resp BP BP Pulse Ox 10/07/19 11:56 97.7 F 83 22 H 106/65 96 10/07/19 08:20 96 10/07/19 08:00 97.4 F L 80 17 111/56 L 96 10/07/19 04:00 98.9 F 67 16 171/71 H 99 Weight Weight 166 lb 11.68 oz I&O: 10/06/19 10/07/19 10/08/19 06:59 06:59 06:59 Intake Total 2675 3110 Output Total 1295 950 Balance 1380 2160 Result Diagrams: 10/07/19 05:28 10/06/19 04:05 Hospitalist ROS - Medication Medications: Active Medications Generic Name Dose Route Start Last Admin Trade Name Freq PRN Reason Stop Dose Admin Bisacodyl 10 mg 10/07/19 10:21 10/07/19 10:49 Dulcolax [place] 10 mg BIDPRN PRN Administration Constipation Calcium Carbonate 1,000 mg 10/05/19 16:22 10/05/19 16:44 Tums PO 1,000 mg Q4H PRN Administration INDIGESTION Dexamethasone 4 mg 10/04/19 23:59 10/07/19 11:48 Decadron SLOW IVP 4 mg Q6HR KATIE Administration Docusate Sodium 100 mg 10/05/19 21:00 10/07/19 08:23 Colace PO 100 mg BID KATIE Administration Famotidine 20 mg 10/04/19 21:00 10/07/19 08:23 Pepcid PO 20 mg BID KATIE Administration Cefepime HCl 2 gm/ Sodium 100 mls @ 200 mls/hr 10/05/19 04:00 10/07/19 04:15 Chloride IVPB 100 mls 0400,1600 KATIE Administration Sodium Chloride 1,000 mls @ 125 mls/hr 10/04/19 18:44 10/07/19 08:33 Normal Saline 0.9% IV 1,000 mls .Q8H KATEI Administration Vancomycin HCl 1.25 gm/ Sodium 250 mls @ 166.667 mls/hr 10/06/19 05:00 05:29 Chloride IVPB 250 mls 0500,1700 KATIE Administration Letrozole 2.5 mg 10/05/19 21:00 10/06/19 20:19 Femara PO Not Given QPM KATIE Levetiracetam 500 mg 10/04/19 21:00 10/07/19 08:23 Keppra PO 500 mg BID KATIE Administration Memantine 10 mg 10/05/19 21:00 10/07/19 08:26 Namenda PO 10 mg BID KATIE Administration Morphine Sulfate 30 mg 10/05/19 09:00 10/07/19 08:23 Ms Contin PO 30 mg Q12HR KATIE Administration Polyethylene Glycol 17 gm 10/06/19 09:00 10/07/19 08:26 Miralax PO 17 gm DAILY KATIE Administration - Exam General Appearance: NAD, awake alert General - other findings: left side port Eye: PERRL ENT: normocephalic atraumatic Neck: supple Heart: RRR Respiratory: CTAB, normal chest expansion Gastrointestinal: soft, normal bowel sounds Hosp A/P - Plan sepsis Code(s): A41.9 - SEPSIS, UNSPECIFIED ORGANISM; D70.9 - NEUTROPENIA, UNSPECIFIED Status: Acute Plan: Continue supportive mgmt, continue Cefepime/Vancomycin another 24h then d/c, initial blood cx negative Continue Cefepime/Vancomycin Severe leukopenia -close monitor - no diff.. done - will check on that -onc s/off w.. fw in the clinic. - will check w.. them, if any jeni. - thrombocytopenia plts around 30K, no bleed sn.. (2) Acute metabolic encephalopathy Code(s): G93.41 - METABOLIC ENCEPHALOPATHY Status: Acute Plan: Likely multifactorial including #1 and dehydration, resolved (3) Hyponatremia Code(s): E87.1 - HYPO-OSMOLALITY AND HYPONATREMIA Status: Acute Plan: continue IVF NS, serial Na+ -improved (4) Inflammatory breast carcinoma Code(s): C50.919 - MALIGNANT NEOPLASM OF UNSP SITE OF UNSPECIFIED FEMALE BREAST Status: Acute Qualifiers: Laterality: right Qualified Code(s): C50.911 - Malignant neoplasm of unspecified site of right female breast Plan: Will resume outpt chemotherapy upon d/c (5) Brain metastases Code(s): C79.31 - SECONDARY MALIGNANT NEOPLASM OF BRAIN Status: Acute Plan: Metastatic inflammatory breast carcinoma - Plan continue antibiotics, 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 -home esteban, likely if bowel is ok.
[2019-10-07 16:51] LABS: Vancomycin, Trough 15.8 ug/mL
[2019-10-07] MEDS: Letrozole 2.5 MG TAB PO SCH (20:06)
[2019-10-08] MEDS: Cefepime 2 GM in Sodium Chloride 0.9% 100 ML IVPB SCH (04:04)
[2019-10-08] MEDS: Sodium Chloride 0.9% 1,000 ML IV SCH ×3 (04:05→20:51)
[2019-10-08 04:30] LABS: Mean Corpuscular HGB CONC 34.3 g/dL (32.0-36.0); Mean Corpuscular Hemoglobin 30.5 pg (27.0-31.0); Mean Corpuscular Volume 88.9 fL (78.0-98.0); Mean Platelet Volume 11.2 fL (7.4-10.4); Platelet Count 19 thou/uL (130-400); RBC Distribution Width 15.4 % (11.5-14.5); Red Blood Cell (RBC) Count 2.95 mill/uL (4.20-5.40); White Blood Cell (WBC) Count 0.4 thou/uL (4.8-10.8)
[2019-10-08] MEDS: Vancomycin HCl 1.25 GM in Sodium Chloride 0.9% 250 ML 250 ML IVPB SCH (05:05)
[2019-10-08] MEDS: Dexamethasone 4 mg/ml Vial SLOW IVP SCH ×4 (05:05→23:44)
[2019-10-08 05:30] LABS: Hypochromia SLIGHT = 6-15 cells (100X) (0-5/hpf); MDiff Complete? YES; Platelet Morphology Comment Appears Decreased
[2019-10-08] MEDS: Famotidine 20 MG TAB PO SCH ×2 (08:14→20:48)
[2019-10-08] MEDS: Polyethylene Glycol 3350 17 GM Packet PO SCH (08:15)
[2019-10-08] MEDS: Docusate 100 MG CAP PO SCH ×2 (08:15→20:41)
[2019-10-08] MEDS: levETIRAcetam 500 MG TAB PO SCH ×2 (08:15→20:40)
[2019-10-08] MEDS: Morphine ER 30 MG TAB PO SCH ×2 (08:15→20:39)
--- NOTE | 2019-10-08 08:47 | PDOC.MOPN ---
Interval History: Pt feeling ok today. She is still very weak in her LE and fell yesterday trying to get to the commode and requires 2 people to help her. She still has a díaz catheter. She still has a poor appetite, not hungry. - Vital Signs Vital Signs: Vital Signs (12 hours) Temp Pulse Resp BP Pulse Ox 10/08/19 07:56 97.4 F L 90 18 112/57 L 98 10/08/19 04:00 97.8 F 10/07/19 23:54 98.2 F Weight Weight 166 lb 11.68 oz - Physical Exam General: Alert, Oriented x3, Cooperative Lungs: Normal air movement Cardiovascular: Regular rate Neurological: Cranial nerves 3-12 NL Psych/Mental Status: Mood NL - Labs Result Diagrams: 10/08/19 04:03 10/06/19 04:05 Lab results: Laboratory Results - last 24 hr 10/08/19 04:03: WBC 0.4 L*, RBC 2.95 L, Hgb 9.0 L, Hct 26.2 L, MCV 88.9, MCH 30.5, MCHC 34.3, RDW 15.4 H, Plt Count 19 L*, MPV 11.2 H, Neutrophils % (Manual ) Not Reportable, Lymphocytes # Not Reportable, Hypochromia SLIGHT = 6-15 cells , Plt Morphology Comment Appears Decreased L 10/07/19 16:23: Vancomycin Trough 15.8 A/P - Problem (1) Inflammatory breast carcinoma Current Visit: Yes Code(s): C50.919 - MALIGNANT NEOPLASM OF UNSP SITE OF UNSPECIFIED FEMALE BREAST Status: Acute Qualifiers: Laterality: right Qualified Code(s): C50.911 - Malignant neoplasm of unspecified site of right female breast (2) Brain metastases Current Visit: No Code(s): C79.31 - SECONDARY MALIGNANT NEOPLASM OF BRAIN Status: Acute - Plan Plan: monitor CBC, no fevers and no signs of infection so can likely DC antibiotics today: defer to hospitalist start megace, encourage increased PO intake consider urology consult due to díaz, likely neurogenic bladder 2/2 spinal mets pt will likely need help at home, bedside commode
[2019-10-08] MEDS: Megestrol Acetate 800 MG/20 ML UDCUP PO SCH (09:33)
--- NOTE | 2019-10-08 12:14 | PDOC.HOSPP ---
- Subjective Encounter Date: 10/08/19 Encounter Time: 09:20 Subjective: she remained stable, no fever, had BM. neg oscar, so yes, will dc abx. - Objective Vital Signs & Weight: Vital Signs (12 hours) Temp Pulse Resp BP Pulse Ox 10/08/19 08:00 98 10/08/19 07:56 97.4 F L 90 18 112/57 L 98 10/08/19 04:00 97.8 F Weight Weight 166 lb 11.68 oz I&O: 10/07/19 10/08/19 10/09/19 06:59 06:59 06:59 Intake Total 3110 2815 Output Total 950 725 Balance 2160 2090 Result Diagrams: 10/08/19 04:03 10/06/19 04:05 Hospitalist ROS - Medication Medications: Active Medications Generic Name Dose Route Start Last Admin Trade Name Freq PRN Reason Stop Dose Admin Bisacodyl 10 mg 10/07/19 10:21 10/07/19 10:49 Dulcolax [place] 10 mg BIDPRN PRN Administration Constipation Calcium Carbonate 1,000 mg 10/05/19 16:22 10/05/19 16:44 Tums PO 1,000 mg Q4H PRN Administration INDIGESTION Dexamethasone 4 mg 10/04/19 23:59 10/08/19 11:38 Decadron SLOW IVP 4 mg Q6HR KATIE Administration Docusate Sodium 100 mg 10/05/19 21:00 10/08/19 08:15 Colace PO 100 mg BID KATIE Administration Famotidine 20 mg 10/04/19 21:00 10/08/19 08:14 Pepcid PO 20 mg BID KATIE Administration Cefepime HCl 2 gm/ Sodium 100 mls @ 200 mls/hr 10/05/19 04:00 10/08/19 04:04 Chloride IVPB 100 mls 0400,1600 KATIE Administration Sodium Chloride 1,000 mls @ 125 mls/hr 10/04/19 18:44 10/08/19 04:05 Normal Saline 0.9% IV 1,000 mls .Q8H KATIE Administration Vancomycin HCl 1.25 gm/ Sodium 250 mls @ 166.667 mls/hr 10/06/19 05:00 05:05 Chloride IVPB 250 mls 0500,1700 KATIE Administration Letrozole 2.5 mg 10/05/19 21:00 10/07/19 20:06 Femara PO Not Given QPM KATIE Levetiracetam 500 mg 10/04/19 21:00 10/08/19 08:15 Keppra PO 500 mg BID KATIE Administration Megestrol Acetate 800 mg 10/08/19 09:00 10/08/19 09:33 Megace PO 800 mg DAILY KATIE Administration Memantine 10 mg 10/05/19 21:00 10/08/19 08:15 Namenda PO 10 mg BID KATIE Administration Morphine Sulfate 30 mg 10/05/19 09:00 10/08/19 08:15 Ms Contin PO 30 mg Q12HR KATIE Administration Polyethylene Glycol 17 gm 10/06/19 09:00 10/08/19 08:15 Miralax PO 17 gm DAILY KATIE Administration - Exam General Appearance: NAD, awake alert Eye: PERRL ENT: normocephalic atraumatic Neck: supple Heart: RRR Respiratory: CTAB, normal chest expansion Gastrointestinal: soft, normal bowel sounds Neurological: no focal deficits Hosp A/P - Plan sepsis Code(s): A41.9 - SEPSIS, UNSPECIFIED ORGANISM; D70.9 - NEUTROPENIA, UNSPECIFIED Status: Acute Plan: Continue supportive mgmt, continue Cefepime/Vancomycin another 24h then d/c, initial blood cx negative Continue Cefepime/Vancomycin Severe leukopenia -close monitor - no diff.. done - will check on that -onc s/off w.. fw in the clinic. - will check w.. them, if any jeni. - thrombocytopenia plts around 30K, no bleed sn.. (2) Acute metabolic encephalopathy Code(s): G93.41 - METABOLIC ENCEPHALOPATHY Status: Acute Plan: Likely multifactorial including #1 and dehydration, resolved (3) Hyponatremia Code(s): E87.1 - HYPO-OSMOLALITY AND HYPONATREMIA Status: Acute Plan: continue IVF NS, serial Na+ -improved (4) Inflammatory breast carcinoma Code(s): C50.919 - MALIGNANT NEOPLASM OF UNSP SITE OF UNSPECIFIED FEMALE BREAST Status: Acute Qualifiers: Laterality: right Qualified Code(s): C50.911 - Malignant neoplasm of unspecified site of right female breast Plan: Will resume outpt chemotherapy upon d/c (5) Brain metastases Code(s): C79.31 - SECONDARY MALIGNANT NEOPLASM OF BRAIN Status: Acute Plan: Metastatic inflammatory breast carcinoma - Plan continue antibiotics, 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 - -manuel started - adult protective caseworker c/s placed to arrage for home health and bedside commode -when Dr. Hurst clears her, then dc home w.. [facility].
[2019-10-08] MEDS: Letrozole 2.5 MG TAB PO SCH (20:41)
[2019-10-09] MEDS: Dexamethasone 4 mg/ml Vial SLOW IVP SCH ×4 (05:20→23:43)
[2019-10-09] MEDS: Sodium Chloride 0.9% 1,000 ML IV SCH ×4 (05:20→21:49)
[2019-10-09 05:43] LABS: Hemoglobin 9.2 g/dL (12.0-16.0); Mean Corpuscular HGB CONC 32.8 g/dL (32.0-36.0); Mean Corpuscular Hemoglobin 29.2 pg (27.0-31.0); Mean Corpuscular Volume 89.1 fL (78.0-98.0); Mean Platelet Volume 10.8 fL (7.4-10.4); Platelet Count 20 thou/uL (130-400); RBC Distribution Width 15.4 % (11.5-14.5); Red Blood Cell (RBC) Count 3.13 mill/uL (4.20-5.40); White Blood Cell (WBC) Count 0.6 thou/uL (4.8-10.8)
[2019-10-09 05:58] LABS: Calc. Creatinine Clearance 149 mL/min (70-130); Estimated GFR-MDRD Greater than 90
[2019-10-09 06:01] LABS: Band 17 % (5-11); Lymphocytes 7 % (21-51); MDiff Complete? YES; Monocytes 20 % (0-10); Neutrophil 57 % (42-75); Platelet Morphology Comment Appears Decreased
[2019-10-09] MEDS: Docusate 100 MG CAP PO SCH ×2 (08:11→21:41)
[2019-10-09] MEDS: Famotidine 20 MG TAB PO SCH ×2 (08:11→21:42)
[2019-10-09] MEDS: levETIRAcetam 500 MG TAB PO SCH ×2 (08:12→21:41)
[2019-10-09] MEDS: Morphine ER 30 MG TAB PO SCH ×2 (08:13→21:41)
[2019-10-09] MEDS: Megestrol Acetate 800 MG/20 ML UDCUP PO SCH (08:13)
[2019-10-09] MEDS: Polyethylene Glycol 3350 17 GM Packet PO SCH (08:21)
--- NOTE | 2019-10-09 11:08 | PDOC.HOSPP ---
- Subjective Encounter Date: 10/09/19 Encounter Time: 09:05 Subjective: doing well. BM 2 days prior, poor intake. no abx. only on decadron. not ambulatory. - Objective Vital Signs & Weight: Vital Signs (12 hours) Temp Pulse Resp BP BP Pulse Ox 10/09/19 08:00 97.9 F 70 18 130/61 96 10/09/19 04:00 98.3 F 100 16 133/67 96 10/09/19 00:00 98.6 F 97 16 119/61 97 Weight Weight 166 lb 11.68 oz I&O: 10/08/19 10/09/19 10/10/19 06:59 06:59 06:59 Intake Total 2815 2710 Output Total 725 900 Balance 2090 1810 Result Diagrams: 10/09/19 05:26 10/09/19 05:26 Hospitalist ROS - Medication Medications: Active Medications Generic Name Dose Route Start Last Admin Trade Name Freq PRN Reason Stop Dose Admin Bisacodyl 10 mg 10/07/19 10:21 10/07/19 10:49 Dulcolax [place] 10 mg BIDPRN PRN Administration Constipation Calcium Carbonate 1,000 mg 10/05/19 16:22 10/05/19 16:44 Tums PO 1,000 mg Q4H PRN Administration INDIGESTION Dexamethasone 4 mg 10/04/19 23:59 10/09/19 05:20 Decadron SLOW IVP 4 mg Q6HR KATIE Administration Docusate Sodium 100 mg 10/05/19 21:00 10/09/19 08:11 Colace PO 100 mg BID KATIE Administration Famotidine 20 mg 10/04/19 21:00 10/09/19 08:11 Pepcid PO 20 mg BID KATIE Administration Sodium Chloride 1,000 mls @ 125 mls/hr 10/04/19 18:44 10/09/19 05:20 Normal Saline 0.9% IV 1,000 mls .Q8H KATIE Administration Letrozole 2.5 mg 10/05/19 21:00 10/08/19 20:41 Femara PO 2.5 mg QPM KATIE Administration Levetiracetam 500 mg 10/04/19 21:00 10/09/19 08:12 Keppra PO 500 mg BID KATIE Administration Megestrol Acetate 800 mg 10/08/19 09:00 10/09/19 08:13 Megace PO 800 mg DAILY KATIE Administration Memantine 10 mg 10/05/19 21:00 10/09/19 08:13 Namenda PO 10 mg BID KATIE Administration Morphine Sulfate 30 mg 10/05/19 09:00 10/09/19 08:13 Ms Contin PO 30 mg Q12HR KATIE Administration Polyethylene Glycol 17 gm 10/06/19 09:00 10/09/19 08:21 Miralax PO 17 gm DAILY KATIE Administration - Exam General Appearance: NAD, awake alert Eye: PERRL ENT: normocephalic atraumatic Neck: supple Heart: RRR Respiratory: CTAB, normal chest expansion Gastrointestinal: soft, normal bowel sounds Neurological: no focal deficits Hosp A/P - Plan sepsis Code(s): A41.9 - SEPSIS, UNSPECIFIED ORGANISM; D70.9 - NEUTROPENIA, UNSPECIFIED Status: Acute Plan: Continue supportive mgmt, continue Cefepime/Vancomycin another 24h then d/c, initial blood cx negative Continue Cefepime/Vancomycin Severe leukopenia -close monitor - no diff.. done - will check on that -onc s/off w.. fw in the clinic. - will check w.. them, if any jeni. - thrombocytopenia plts around 30K, no bleed sn.. (2) Acute metabolic encephalopathy Code(s): G93.41 - METABOLIC ENCEPHALOPATHY Status: Acute Plan: Likely multifactorial including #1 and dehydration, resolved (3) Hyponatremia Code(s): E87.1 - HYPO-OSMOLALITY AND HYPONATREMIA Status: Acute Plan: continue IVF NS, serial Na+ -improved (4) Inflammatory breast carcinoma Code(s): C50.919 - MALIGNANT NEOPLASM OF UNSP SITE OF UNSPECIFIED FEMALE BREAST Status: Acute Qualifiers: Laterality: right Qualified Code(s): C50.911 - Malignant neoplasm of unspecified site of right female breast Plan: Will resume outpt chemotherapy upon d/c (5) Brain metastases Code(s): C79.31 - SECONDARY MALIGNANT NEOPLASM OF BRAIN Status: Acute Plan: Metastatic inflammatory breast carcinoma 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
--- NOTE | 2019-10-09 16:21 | PDOC.MOPN ---
Interval History: doing ok, denies fever. - Vital Signs Vital Signs: Vital Signs (12 hours) Temp Pulse Pulse Resp BP BP Pulse Ox 10/09/19 12:00 98.1 F 72 18 120/58 L 98 10/09/19 09:28 78 118/58 L 10/09/19 08:00 97.9 F 70 18 130/61 96 Weight Weight 166 lb 11.68 oz - Physical Exam General: Alert HEENT: Atraumatic, PERRLA, EOMI, Mucous membr. moist/pink Lungs: Clear to auscultation, Normal air movement Cardiovascular: Regular rate, Normal S1, Normal S2, No murmurs, Gallops, Rubs Abdomen: Normal bowel sounds, Soft, No tenderness, No hepatospenomegaly, No masses Neurological: Normal speech - Labs Result Diagrams: 10/09/19 05:26 10/09/19 05:26 Lab results: Laboratory Results - last 24 hr 10/09/19 05:26: Creatinine 0.48 L, Estimated GFR (MDRD) Greater than 90 10/09/19 05:26: WBC 0.6 L*, RBC 3.13 L, Hgb 9.2 L, Hct 27.9 L, MCV 89.1, MCH 29.2, MCHC 32.8, RDW 15.4 H, Plt Count 20 L*, MPV 10.8 H, Neutrophils % (Manual ) 57, Band Neuts % (Manual) 17 H, Lymphocytes % (Manual) 7 L, Monocytes % ( Manual) 20 H, Lymphocytes # Not Reportable, Plt Morphology Comment Appears Decreased L Status: lab reviewed by me A/P - Problem (1) Neutropenic sepsis Current Visit: Yes Code(s): A41.9 - SEPSIS, UNSPECIFIED ORGANISM; D70.9 - NEUTROPENIA, UNSPECIFIED Status: Acute (2) Brain metastases Current Visit: No Code(s): C79.31 - SECONDARY MALIGNANT NEOPLASM OF BRAIN Status: Acute (3) Breast cancer Current Visit: No Status: Chronic Qualifiers: Patient sex: female Laterality: right - Plan Plan: Await approval for Rehab by insurance Granix shot today for neutropenia Continue Femara, hold Ibrance Monitor CBC
[2019-10-09] MEDS: Letrozole 2.5 MG TAB PO SCH (21:41)
[2019-10-10] MEDS: Dexamethasone 4 mg/ml Vial SLOW IVP SCH ×2 (05:22→11:57)
[2019-10-10] MEDS: Sodium Chloride 0.9% 1,000 ML IV SCH (05:22)
[2019-10-10] MEDS: levETIRAcetam 500 MG TAB PO SCH (08:08)
[2019-10-10] MEDS: Famotidine 20 MG TAB PO SCH (08:08)
[2019-10-10] MEDS: Docusate 100 MG CAP PO SCH (08:09)
[2019-10-10] MEDS: Polyethylene Glycol 3350 17 GM Packet PO SCH (08:09)
[2019-10-10] MEDS: Morphine ER 30 MG TAB PO SCH (08:09)
[2019-10-10] MEDS: Megestrol Acetate 800 MG/20 ML UDCUP PO SCH (08:09)
[2019-10-10 10:13] LABS: Hemoglobin 9.4 g/dL (12.0-16.0); Mean Corpuscular HGB CONC 33.1 g/dL (32.0-36.0); Mean Corpuscular Hemoglobin 29.4 pg (27.0-31.0); Mean Corpuscular Volume 88.8 fL (78.0-98.0); Mean Platelet Volume 10.9 fL (7.4-10.4); Platelet Count 18 thou/uL (130-400); RBC Distribution Width 15.8 % (11.5-14.5); White Blood Cell (WBC) Count 1.1 thou/uL (4.8-10.8)
[2019-10-10 12:04] VITALS: BP 113/68; TEMP 98
--- NOTE | 2019-10-11 08:05 | DIS ---
DATE OF ADMISSION: 10/04/2019 DATE OF DISCHARGE: 10/10/2019 DISCHARGE DIAGNOSES: 1. Sepsis, inflammatory in nature with neutropenia. 2. Severe leukopenia and thrombocytopenia, probably multifactorial with chemotherapy as well as inflammatory breast cancer. Sepsis secondary to neutropenia as well as inflammatory breast cancer and it is non-infectious in nature. 3. Acute metabolic encephalopathy that is also multifactorial including dehydration and this resolved. The patient back to clear mental baseline. Hyponatremia, that is resolved. Inflammatory breast cancer of the right side. She will be continuing her outpatient chemotherapy. 4. Metastatic inflammatory breast cancer to the brain. MEDICATIONS: 1. Morphine 30 mg twice a day. 2. Megestrol 800 mg daily. 3. Famotidine 40 mg morning. 4. Decadron 4 mg p.o. tid PHYSICAL EXAMINATION: VITAL SIGNS: On the day of discharge, her temp is 96.4, pulse 80, blood pressure 116/66, saturating 98% on room air. GENERAL: The patient is alert and oriented. She has a right side total mastectomy. Some significant scar as well as some ecchymosis on the side of the right side chest. She also has some chronic rash in her central abdominal area. CARDIOVASCULAR: Regular rate and rhythm without murmurs, rubs, or gallops. LUNGS: Clear to auscultation bilaterally without wheezing, rales, or rhonchi. ABDOMEN: Soft, nontender, nondistended. Good bowel sounds. EXTREMITIES: Did not appreciate any pitting edema, and no rash. HOSPITAL COURSE: This is a 59-year-old female presented with an inflammatory right breast cancer and secondary malignancy to the brain. She was taking chemo Ibrance, Femara, and Zometa. She presented with severe pancytopenia as well as sepsis. She was started on a broad-spectrum antibiotics. Cultures were negative. Supportive measures adapted for the most part. She had trouble with constipation that has resolved after several rounds of successful attempt of stool softeners including suppositories. There is slight improvement in her leukopenia. Blood cultures were negative for 4 days. In this context, both vancomycin and cefepime were discontinued. On the day of discharge, her white counts were 600. Her hemoglobin 9.2, platelets of 20,000. The patient is hemodynamically stable, and she will be following with the Oncology Clinic with Dr. Hicks to continue her chemo with Femara. She also got a shot of Granix for the neutropenia. DISCHARGE INSTRUCTIONS: 1. Activity as tolerated. Regular diet. Follow up with Dr. Hciks to continue the chemo Femara. 2. Follow up with primary care physician in 1 week. TIME SPENT: Discharge time took over 30 minutes. Job ID: [id number] MTDD
--- NOTE | 2019-10-11 08:31 | PQF ---
[facility] ARTHUR,[place] YOUSIFJAY BARTH [id number] [id number] CLINICAL DOCUMENTATION CLARIFICATION FORM: POST DISCHARGE Addendum to original discharge summary date: ____ Late entry note date: __ DATE: 10/11/2019 ATTN: Jay Crystal Please exercise your independent, professional judgment in responding to the clarification form. Clinical indicators are provided on the bottom of this form for your review Please check appropriate box(s) to clarify if the following diagnosis has been ruled in or ruled out: Sepsis [ ] Ruled in diagnosis [ ] Continue to treat [ ] Resolved [ ] Ruled out diagnosis [ ] Cannot rule out diagnosis [ ] Other diagnosis [ ] Unable to determine For continuity of documentation, please document condition throughout progress notes and discharge summary. Thank You. CLINICAL INDICATORS - SIGNS / SYMPTOMS / LABS Laboratory 10/03 WBC 0.3, RBC 4.61, Hgb 13.0, Hgb 41.1, platelet 13.8, Neutrophils 57 Laboratory 10/04 WBC 0.4, RBC 3.59, Hgb 10.9 Hgb 31.8, platelet 8.6, Neutrophils 57 Blood culture 10/03 No growth in 5 days Vital signs 10/03 BP 93/69, pulse 153, Resp 20, temp 97.8 ED notes p2 10/03 SIRS scoring: yes, Pt did meet at least 2 criteria H&P p1 10/03 Dr Roberto presents with question of altered mentation and low blood pressure with dehdyration H&P p3 10/03 Dr Roberto Neutropenic Sepsis H&P p4 10/03 Dr Roberto Acute metabolic encephalopathy H&P p4 10/03 Dr Roberto Neutropenia/thrombocytopenia secondary to Antineoplastic therapy Hospitalist PN p1 10/04 Dr Roberto f/u neutropenic sepsis with negative blood cx currently Hospitalist PN p6 10/06 Dr Thompson does not appear need any home abx regimen as oscar neg and clinically stable except very low WBCs of 200 only RISK FACTORS H&P p1 10/03 - 59 year-old Female H&P p1 10/03 - Former smoker H&P p1 10/03 - Inflammatory metastatic breast cancer involving brain and bones Consult p1 10/04 - Pancytopenia TREATMENTS AUG 07 IV Vancomycin 1.25 mg AUG 07 IVF NS 1L AUG 07 IV Cefepime 2gm Blood culture 10/03 Transfusion 10/03 Platelets (This form is maintained as a part of the permanent medical record) 2014 [employer]. All Rights Reserved [email or web address]
== END 2019-10-10 13:53 | DRG 808 ==
LOC: ERS 15:14 → ONC 18:12
PROVIDERS: ADMIT Family Medicine; ATTEND Family Medicine
PROC: 30233R1 Transfusion of Nonautologous Platelets into Peripheral Vein, Percutaneous Approach (ICD-10-PCS; principal; 2019-10-04)
PROC: 0T9B70Z Drainage of Bladder with Drainage Device, Via Natural or Artificial Opening (ICD-10-PCS; 2019-10-04)
DX: D61.810 Antineoplastic chemotherapy induced pancytopenia (principal); A41.9 Sepsis, unspecified organism; G93.41 Metabolic encephalopathy; R65.20 Severe sepsis without septic shock; C79.31 Secondary malignant neoplasm of brain; E87.1 Hypo-osmolality and hyponatremia; C79.51 Secondary malignant neoplasm of bone; C78.7 Secondary malignant neoplasm of liver and intrahepatic bile duct; G40.909 Epilepsy, unspecified, not intractable, without status epilepticus; E86.0 Dehydration; C50.911 Malignant neoplasm of unspecified site of right female breast; T45.1X5A Adverse effect of antineoplastic and immunosuppressive drugs, initial encounter; K59.00 Constipation, unspecified; Z87.891 Personal history of nicotine dependence; Z90.11 Acquired absence of right breast and nipple; Z79.899 Other long term (current) drug therapy; Z86.73 Personal history of transient ischemic attack (TIA), and cerebral infarction without residual deficits
CPT/HCPCS: 36415; 36416; 36430; 51701; 70450; 71045; 71275; 80048; 80053; 80202; 81003; 81015; 82140; 82248; 82533; 82550; 82565; 82805; 83605; 83615; 83690; 83880; 84100; 84484; 84550; 85007; 85025; 85027; 85362; 85379; 85384; 86850; 86900; 86901; 87040; 93005; 96361; 96365; 96367; 96375; A4353; J0692; J1100; J1447; J1642; J3370; J3490; J7050; P9035; Q9967